=== PATIENT | male | born 1980 | race African-American/Black ===

== ENCOUNTER 2018-06-15 14:03 | Observation (INO) | payer OTHER ==
--- NOTE | 2018-06-15 14:35 | PDOC ---
History of Present Illness - General Chief Complaint: Pain Stated Complaint: CHEST PAIN Time Seen by Provider: 06/15/18 14:34 History Source: Patient Exam Limitations: No Limitations - History of Present Illness Initial Comments: 06/15/18 15:01 37 year old male with PMH HTN, HLD, DM, morbid obesity, blood clot in abdomen ( pt unable to provide more specific information), bipolar disorder BIBA to ED from PCP for chest pain and abdominal pain since 0300 today. Pt stated his chest pain is substernal, intermittent, sharp, nonradiating. Pt located his abdominal pain to his epigastrium. Pt was seen in Dr. Latif's office by another provider today, was sent to ED for eval. Pt stated he has has had two syncopal episodes, one x3 weeks ago lasting 3-4 minutes, witnessed by his family member. And another 2/15, lasting 3-4 minutes, witnessed by his father. Pt denied nausea, vomiting, diarrhea, constipation, fever, chills, cough, lightheadedness, head injury, fall. Allergies: Loratidine PCP: Salomon Past History - Past Medical History Allergies/Adverse Reactions: Allergies Allergy/AdvReac Type Severity Reaction Status Date / Time loratadine [From Claritin] Allergy Verified 06/15/18 14:11 Home Medications: Ambulatory Orders Amlodipine Besylate [Norvasc -] 5 mg PO DAILY 06/15/18 Clonazepam [Klonopin] 2 mg PO DAILY 06/15/18 Quetiapine Fumarate [Seroquel] 300 mg PO BID 06/15/18 Zolpidem Tartrate [Ambien] 10 mg PO DAILY 06/15/18 COPD: No Diabetes: Yes HTN: Yes Hypercholesterolemia: Yes Seizures: Yes (bipolar) - Suicide/Smoking/Psychosocial Hx Smoking History: Current every day smoker Have you smoked in the past 12 months: Yes Number of Cigarettes Smoked Daily: 20 Information on smoking cessation initiated: No Hx Alcohol Use: No Drug/Substance Use Hx: Yes Review of Systems - Review of Systems Able to Perform ROS?: Yes Comments:: 06/15/18 15:07 General: denied fever, chills, night sweats, generalized weakness. HEENT: denied sore throat, rhinorrhea, ear pain. Heart: admitted to chest pain, syncope. denied palpitations, diaphoresis. Respiratory: denied shortness of breath, cough, sputum production, hemoptysis. Abdomen: admitted to abdominal pain. denied nausea, vomiting, diarrhea, constipation, blood in stool. : denied dysuria, increased urinary frequency, hematuria, urinary incontinence , flank pain. Back: denied back pain. Musculoskeletal: denied joint pain, muscle pain, joint swelling. Neurological: denied headache, dizziness, numbness, tingling, weakness. Skin: denied rash, laceration, abrasion. *Physical Exam - Vital Signs Last Vital Signs Temp Pulse Resp BP Pulse Ox 98.3 F 96 H 20 127/72 98 06/15/18 14:12 06/15/18 14:12 06/15/18 14:12 06/15/18 14:12 06/15/18 14:12 - Physical Exam Comments: 06/15/18 15:08 Constitutional: Well-nourished, Well-developed, appearing stated age. morbidly obese. HEENT: head is normocephalic, atraumatic. EOMI. PERRLA. Neck: supple. Full ROM. Heart: regular rhythm. no murmurs, rubs or gallops. Lungs: clear to auscultation bilaterally. no crackles, rhonchi or wheezing. no stridor. Abdomen: soft, nontender. normal bowel sounds. no rebound, guarding, masses. Extremities: Peripheral pulses intact. 1+ pitting edema to bilateral LE. Neurological: CN 2-12 grossly intact. Moves all four extremities. Psych: awake, alert, oriented x3. Follows commands. Answers questions appropriately. Moderate Sedation - Procedure Monitoring Vital Signs: Procedure Monitoring Vital Signs Temperature 98.3 F 06/15/18 14:12 Pulse Rate 96 H 06/15/18 14:12 Respiratory Rate 20 06/15/18 14:12 Blood Pressure 127/72 06/15/18 14:12 O2 Sat by Pulse Oximetry (%) 98 06/15/18 14:12 ED Treatment Course - LABORATORY CBC & Chemistry Diagram: 06/16/18 05:30 06/16/18 05:30 Medical Decision Making - Medical Decision Making 06/15/18 15:09 37 year old male with above PMH presented to ED for chest pain, abdominal pain since 0300 today. Pt also admitted to two syncopal episodes in the last 3 weeks. Initial Vital Signs Temp Pulse Resp BP Pulse Ox 98.3 F 96 H 20 127/72 98 06/15/18 14:12 06/15/18 14:12 06/15/18 14:12 06/15/18 14:12 06/15/18 14:12 Afebrile. Borderline tachycardia. Borderline tachypnea. No hypotension. No hypertension. No hypoxia on room air. o Labs ordered: CBC, CMP, troponin, coags, BNP c Imaging ordered: CXR, CTA chest, Liver US g Medications ordered: ASA EKG performed at 1449: rate 87, regular rhythm, normal axis, normal intervals, low voltage, no acute ST changes. 06/15/18 15:16 CBC WBC y 10.4 K/mm3 (4.0-10.0) H 06/15/18 14:58 RBC 5.43 M/mm3 (4.00-5.60) 06/15/18 14:58 Hgb 16.0 GM/dL (11.7-16.9) 06/15/18 14:58 Hct 46.7 % (35.4-49) 06/15/18 14:58 MCV 86.1 fl (80-96) 06/15/18 14:58 MCH 29.4 pg (25.7-33.7) 06/15/18 14:58 MCHC 34.2 g/dl (32.0-35.9) 06/15/18 14:58 RDW 14.4 % (11.9-15.9) 06/15/18 14:58 Plt Count 215 K/MM3 (134-434) 06/15/18 14:58 MPV 8.7 fl (7.5-11.1) 06/15/18 14:58 Absolute Neuts (auto) 7.4 K/mm3 (1.5-8.0) 06/15/18 14:58 Neutrophils % 71.3 % (42.8-82.8) 06/15/18 14:58 Lymphocytes % 19.4 % (8-40) 06/15/18 14:58 Monocytes % 7.1 % (3.8-10.2) 06/15/18 14:58 Eosinophils % 1.1 % (0-4.5) 06/15/18 14:58 Basophils % 1.1 % (0-2.0) 06/15/18 14:58 Nucleated RBC % 0 % (0-0) 06/15/18 14:58 Mild leukocytosis with no left shift. - No prior to compare 06/15/18 15:50 CMP Sodium 137 mmol/L (136-145) 06/15/18 14:58 Potassium 4.1 mmol/L (3.5-5.1) 06/15/18 14:58 Chloride 103 mmol/L (98-107) 06/15/18 14:58 Carbon Dioxide 27 mmol/L (21-32) 06/15/18 14:58 Anion Gap 6 MMOL/L (8-16) L 06/15/18 14:58 BUN 15 mg/dL (7-18) 06/15/18 14:58 Creatinine 1.2 mg/dL (0.55-1.3) 06/15/18 14:58 Creat Clearance w eGFR > 60 (>60) 06/15/18 14:58 Random Glucose 79 mg/dL (74-106) 06/15/18 14:58 Calcium 9.0 mg/dL (8.5-10.1) 06/15/18 14:58 Total Bilirubin 0.2 mg/dL (0.2-1) 06/15/18 14:58 AST 29 U/L (15-37) 06/15/18 14:58 ALT 53 U/L (13-61) 06/15/18 14:58 Alkaline Phosphatase 95 U/L (45-117) 06/15/18 14:58 Troponin I < 0.02 ng/ml (0.00-0.05) 06/15/18 14:58 B-Natriuretic Peptide 20.8 pg/ml (5-125) 06/15/18 14:58 Total Protein 7.5 g/dl (6.4-8.2) 06/15/18 14:58 Albumin 3.8 g/dl (3.4-5.0) 06/15/18 14:58 No electrolyte abnormalities. Borderline Cr. - No prior to compare g - IV normal saline bolus 1000 cc ordered - Risk of unidentified PE greater than risk of contrast to kidneys No transaminitis. o Normal troponin. No BNP elevation. 06/15/18 17:18 c CXR report: no acute chest pathology. 06/15/18 17:53 c CTA Chest report: no evidence of pulmonary embolism. no acute chest pathology. 06/15/18 18:44 Pt reported continued chest pain. g Medications ordered: pepcid, maalox, tylenol PO 975 mg Pt to be admitted for syncope and chest pain. - Microblog sent Pt signed out to Dr. Lima. - Pending second EKG, Liver US for eval of portal vein thrombosis - Pending admission - Pending repeat troponin 06/16/18 09:21 Follow up: c 1. Liver US: patent main portal vein with physiologic flow direction. diffuse hepatic staetosis. o 2. Repeat troponin x2 normal *DC/Admit/Observation/Transfer Diagnosis at time of Disposition: Chest pain, Syncope - Discharge Dispostion Condition at time of disposition: Stable Decision to Admit order: Yes - Referrals - Patient Instructions - Post Discharge Activity
[2018-06-15] MEDS ORDERED: ASPIRIN 81 MG CHEWABLE TABLETS PO ONE (15:12)
[2018-06-15 15:14] LABS: BASO % 1.1 % (0-2.0); EOS % 1.1 % (0-4.5); HEMATOCRIT 46.7 % (35.4-49); LYMPH % 19.4 % (8-40); MCH 29.4 pg (25.7-33.7); MCHC 34.2 g/dl (32.0-35.9); MEAN CELL VOLUME 86.1 fl (80-96); MEAN PLT VOLUME 8.7 fl (7.5-11.1); MONO % 7.1 % (3.8-10.2); NEUT % 71.3 % (42.8-82.8); PLATELET COUNT 215 K/MM3 (134-434); RBC 5.43 M/mm3 (4.00-5.60); RDW 14.4 % (11.9-15.9); WHITE BLOOD COUNT 10.4 K/mm3 (4.0-10.0)
[2018-06-15] MEDS ORDERED: ASPIRIN 81 MG CHEWABLE TABLETS ONE (15:21)
[2018-06-15 15:27] LABS: INR 1.05 (0.83-1.09); PROTHROMBIN TIME (PATIENT) 12.4 SEC (9.7-13.0)
[2018-06-15 15:30] LABS: ACTIVATED PTT 20.9 SECONDS (25.2-36.5)
[2018-06-15 15:49] LABS: ALBUMIN 3.8 g/dl (3.4-5.0); ALK PHOS 95 U/L (45-117); ANION GAP 6 MMOL/L (8-16); BILIRUBIN,TOTAL 0.2 mg/dL (0.2-1); BLOOD UREA NITROGEN 15 mg/dL (7-18); CHLORIDE 103 mmol/L (98-107); CO2 27 mmol/L (21-32); CREATININE 1.2 mg/dL (0.55-1.3); GLUCOSE,RANDOM 79 mg/dL (74-106); N-TERMINAL BNP 20.8 pg/ml (5-125); POTASSIUM 4.1 mmol/L (3.5-5.1); SGOT/AST 29 U/L (15-37); SGPT/ALT 53 U/L (13-61); SODIUM 137 mmol/L (136-145); TOT PROT 7.5 g/dl (6.4-8.2)
[2018-06-15] MEDS ORDERED: SODIUM CHLORIDE 1,000 ML IV STA (15:57)
--- NOTE | 2018-06-15 18:15 | PDOC ---
Attending Attestation - Resident Resident Name: Tanika Stringer - ED Attending Attestation I have performed the following: I have examined & evaluated the patient, The case was reviewed & discussed with the resident, I agree w/resident's findings & plan, Exceptions are as noted - HPI HPI: 06/15/18 18:09 The patient is a 37 year old male, with a significant PMH of obesity HTN, HLD, DM, ?portal vein thrombosis no longer on AC, who presents to the emergency department for evaluation of chest pain and intermittent, sharp, upper abdominal pain which began this morning. Pt also reports two episodes of syncope while at rest over the past 2 days. Denies any lightheadedness or palpitations at this time. Denies fever, chills, nausea, vomit, diarrhea and constipation. Denies dysuria, frequency, urgency and hematuria. Allergies: NKA Social history: None reported PCP: Dr. Latif - Physicial Exam PE: 06/15/18 18:14 "GENERAL: Awake, alert, and fully oriented, in no acute distress. HEAD: No signs of trauma EYES: PERRLA, EOMI, sclera anicteric, conjunctiva clear ENT: Auricles normal inspection, hearing grossly normal, nares patent, oropharynx clear without exudates. Moist mucosa NECK: Nontender, no stepoffs, Normal ROM, supple, no lymphadenopathy, JVD, or masses LUNGS: Breath sounds equal, clear to auscultation bilaterally. No wheezes, and no crackles HEART: Regular rate and rhythm, normal S1 and S2, no murmurs, rubs or gallops ABDOMEN: Soft, nontender, normoactive bowel sounds. No guarding, no rebound. No masses EXTREMITIES: Normal range of motion, no edema. No clubbing or cyanosis. No cords, erythema, or tenderness NEUROLOGICAL: Cranial nerves II through XII intact. 5/5 strength and sensation in all extremities, Normal speech, normal gait, normal cerebellar function SKIN: Warm, Dry, normal turgor, no rashes or lesions noted. - Medical Decision Making 06/15/18 18:17 37 M with CP + multiple syncopal episodes. Pt with h/o ?portal vein thrombosis ( pt describes clot in his abdomen diagnosed on ultrasound). Will need to r/o PE as etiology of CP and syncope. Will also check liver US to evaluate for portal vein thrombosis. - Labs, coags - CTA chest - Liver US - Admit tele
[2018-06-15] MEDS ORDERED: FAMOTIDINE 20 MG/50 ML IVPB 20 MG/50 ML MG IVPB ONE ×2 (18:43→19:26)
[2018-06-15] MEDS ORDERED: MAG HYDROX/AL HYDROX/SIMETH 30 ML UNIT-DOSE CUP PO ONE (18:43)
[2018-06-15] MEDS ORDERED: ACETAMINOPHEN 325 MG TABLET (FP) PO ONE (18:43)
[2018-06-15] MEDS ORDERED: ACETAMINOPHEN 325 MG TABLET (FP) ONE (19:26)
[2018-06-15] MEDS ORDERED: MAG HYDROX/AL HYDROX/SIMETH 30 ML UNIT-DOSE CUP ONE (19:26)
--- NOTE | 2018-06-15 20:00 | HP ---
CHIEF COMPLAINT: Chest Pain, Syncope PCP: Dr. Latif Psych Nurse: Antonina ([phone]) HISTORY OF PRESENT ILLNESS: This is a 37 y/o young man with Severe Obesity, HTN, HLD, DM, Bipolar Disorder, ?Portal Vein Thrombosis (no AC), RENNY( non-working CPAP machine). Who presents to the ED with midsternal chest pain and 2 syncopal episodes (06/10). Patient describes the pain as pressure non-radiating. Patient reports having two syncopal events on separate occasions lasting several seconds to minutes, with no memory recall of the events. Patient reports pending bariatric surgery- Gastric Sleeve in the process of pre-op testing. Patient denies fever, chills, cough, CASTILLO, palpitations, AP, N/V/D, constipation, dysuria ER course was notable for: (1) Troponin I neg x1 (2) EKG- NSR (3) CTA- no PE or acute intrathoracic pathology Recent Travel: None PAST MEDICAL HISTORY: See HPI PAST SURGICAL HISTORY: Social History: Smoking: Current Alcohol: Social Drugs: Marijuana- Occasional Family History: Father- ESRD Allergies loratadine [From Claritin] Allergy (Verified 06/15/18 14:11) HOME MEDICATIONS: Home Medications Medication Instructions Recorded Amlodipine Besylate [Norvasc -] 5 mg PO DAILY 06/15/18 Clonazepam [Klonopin] 2 mg PO DAILY 06/15/18 Quetiapine Fumarate [Seroquel] 300 mg PO BID 06/15/18 Zolpidem Tartrate [Ambien] 10 mg PO DAILY 06/15/18 REVIEW OF SYSTEMS CONSTITUTIONAL: Absent: fever, chills, diaphoresis, generalized weakness, malaise, loss of appetite, weight change HEENT: Absent: rhinorrhea, nasal congestion, throat pain, throat swelling, difficulty swallowing, mouth swelling, ear pain, eye pain, visual changes CARDIOVASCULAR: chest pain, syncope, peripheral edema Absent: palpitations, irregular heart rate, lightheadedness RESPIRATORY: shortness of breath Absent: cough, dyspnea with exertion, orthopnea, wheezing, stridor, hemoptysis GASTROINTESTINAL: Absent: abdominal pain, abdominal distension, nausea, vomiting, diarrhea, constipation, melena, hematochezia GENITOURINARY: Absent: dysuria, frequency, urgency, hesitancy, hematuria, flank pain, genital pain MUSCULOSKELETAL: Absent: myalgia, arthralgia, joint swelling, back pain, neck pain SKIN: Absent: rash, itching, pallor HEMATOLOGIC/IMMUNOLOGIC: Absent: easy bleeding, easy bruising, lymphadenopathy, frequent infections ENDOCRINE: Absent: unexplained weight gain, unexplained weight loss, heat intolerance, cold intolerance NEUROLOGIC: Absent: headache, focal weakness or paresthesias, dizziness, unsteady gait, seizure, mental status changes, bladder or bowel incontinence PSYCHIATRIC: Absent: anxiety, depression, suicidal or homicidal ideation, hallucinations. PHYSICAL EXAMINATION Vital Signs - 24 hr 06/15/18 14:12 Temperature 98.3 F Pulse Rate 96 H Respiratory 20 Rate Blood Pressure 127/72 O2 Sat by Pulse 98 Oximetry (%) GENERAL: Severe Obesity, awake, alert, and fully oriented, in no acute distress. HEAD: Normal with no signs of trauma. EYES: Pupils equal, round and reactive to light, extraocular movements intact, sclera anicteric, conjunctiva clear. No lid lag. EARS, NOSE, THROAT: Ears normal, nares patent, oropharynx clear without exudates. Moist mucous membranes. NECK: Normal range of motion, supple without lymphadenopathy, JVD, or masses. LUNGS: Breath sounds equal, clear to auscultation bilaterally. No wheezes, and no crackles. No accessory muscle use. HEART: Regular rate and rhythm, normal S1 and S2 without murmur, rub or gallop. CP non-reproducible ABDOMEN: Obese, soft, nontender, not distended, normoactive bowel sounds, no guarding, no rebound, no masses. No hepatomegaly or splenomegaly. MUSCULOSKELETAL: Normal range of motion at all joints. No bony deformities or tenderness. No CVA tenderness. UPPER EXTREMITIES: 2+ pulses, warm, well-perfused. No cyanosis. No clubbing. No peripheral edema. LOWER EXTREMITIES: 2+ pulses, warm, well-perfused. No calf tenderness. No peripheral edema. NEUROLOGICAL: Cranial nerves II-XII intact. Normal speech. Gait not observed. PSYCHIATRIC: Cooperative. Good eye contact. Appropriate mood and affect. SKIN: Warm, dry, normal turgor, no rashes or lesions noted, normal capillary refill. Laboratory Results - last 24 hr 06/15/18 06/15/18 06/15/18 14:58 14:58 14:58 WBC 10.4 H RBC 5.43 Hgb 16.0 Hct 46.7 MCV 86.1 MCH 29.4 MCHC 34.2 RDW 14.4 Plt Count 215 MPV 8.7 Absolute Neuts (auto) 7.4 Neutrophils % 71.3 Lymphocytes % 19.4 Monocytes % 7.1 Eosinophils % 1.1 Basophils % 1.1 Nucleated RBC % 0 PT with INR 12.40 INR 1.05 PTT (Actin FS) 20.9 L Sodium 137 Potassium 4.1 Chloride 103 Carbon Dioxide 27 Anion Gap 6 L BUN 15 Creatinine 1.2 Creat Clearance w eGFR > 60 Random Glucose 79 Calcium 9.0 Total Bilirubin 0.2 AST 29 ALT 53 Alkaline Phosphatase 95 Troponin I < 0.02 B-Natriuretic Peptide 20.8 Total Protein 7.5 Albumin 3.8 Blood Type Antibody Screen 06/15/18 06/15/18 14:58 18:14 WBC RBC Hgb Hct MCV MCH MCHC RDW Plt Count MPV Absolute Neuts (auto) Neutrophils % Lymphocytes % Monocytes % Eosinophils % Basophils % Nucleated RBC % PT with INR INR PTT (Actin FS) Sodium Potassium Chloride Carbon Dioxide Anion Gap BUN Creatinine Creat Clearance w eGFR Random Glucose Calcium Total Bilirubin AST ALT Alkaline Phosphatase Troponin I < 0.02 B-Natriuretic Peptide Total Protein Albumin Blood Type B POSITIVE Antibody Screen Negative ASSESSMENT/PLAN: This is a 37 y/o divya man placed in Tele Observation for Chest Pain r/o ACS, Syncope for further evaluation of their emergent condition. Plan: See Problem List FEN PO fluids as tolerated Replete lytes prn Low Na, Diabetic Diet DVT ppx OOB SCDs Dispo: Observation Problem List - Problem (1) Chest pain Assessment/Plan: r/o ACS HEART Score 3 Cardiac monitoring Serial Enzymes Appreciate Cardiology consult Echo Asa Code(s): R07.9 - CHEST PAIN, UNSPECIFIED (2) Syncope Assessment/Plan: Likely secondary to arrhythmia Continue cardiac montoring Chest Xray- Cardiomegaly Appreciate Cardiology consult Echo Carotid Doppler Monitor CBC, BMP Code(s): R55 - SYNCOPE AND COLLAPSE (3) HTN (hypertension) Assessment/Plan: stable Monitor BP Continue Norvasc Monitor renal function Code(s): I10 - ESSENTIAL (PRIMARY) HYPERTENSION (4) HLD (hyperlipidemia) Assessment/Plan: stable Continue Lipitor Monitor LFTs Code(s): E78.5 - HYPERLIPIDEMIA, UNSPECIFIED (5) Diabetes mellitus Assessment/Plan: Stable BGMs ISS Code(s): E11.9 - TYPE 2 DIABETES MELLITUS WITHOUT COMPLICATIONS (6) Bipolar disorder Assessment/Plan: Continue Seroquel, Klonopin Code(s): F31.9 - BIPOLAR DISORDER, UNSPECIFIED (7) Portal vein thrombosis Assessment/Plan: US- diffuse hepatic steatosis Code(s): I81 - PORTAL VEIN THROMBOSIS (8) Severe obesity (BMI >= 40) Assessment/Plan: Patient reports pending Gastric Sleeve sx Code(s): E66.01 - MORBID (SEVERE) OBESITY DUE TO EXCESS CALORIES Visit type - Emergency Visit Emergency Visit: Yes ED Registration Date: 06/15/18 Care time: The patient presented to the Emergency Department on the above date and was hospitalized for further evaluation of their emergent condition. - New Patient This patient is new to me today: Yes Date on this admission: 06/15/18 - Critical Care Critical Care patient: No
[2018-06-15] MEDS ORDERED: QUEtiapine FUMARATE 100 MG TABLET (FP) ONE (23:09)
[2018-06-15] MEDS ORDERED: ZOLPIDEM TARTRATE 5 MG TABLET ONE (23:09)
[2018-06-15] MEDS: ZOLPIDEM TARTRATE 5 MG TABLET PO PRN (23:12)
[2018-06-15] MEDS: QUEtiapine FUMARATE 300 MG TABLET PO SCH (23:12)
[2018-06-15] MEDS ORDERED: clonazePAM 0.5 MG TABLET ONE (23:24)
[2018-06-15] MEDS: clonazePAM 2 MG TABLET PO SCH (23:29)
--- NOTE | 2018-06-16 02:30 | EKG ---
Test Reason : Blood Pressure : / mmHG Vent. Rate : 087 BPM Atrial Rate : 087 BPM P-R Int : 170 ms QRS Dur : 074 ms QT Int : 382 ms P-R-T Axes : 020 036 054 degrees QTc Int : 459 ms POOR DATA QUALITY, INTERPRETATION MAY BE ADVERSELY AFFECTED NORMAL SINUS RHYTHM LOW VOLTAGE QRS BORDERLINE ECG NO PREVIOUS ECGS AVAILABLE Confirmed by ENDY GALVEZ MD ([id number]) on 06/16/2018 2:30:03 AM Referred By: Confirmed By:ENDY GALVEZ MD
[2018-06-16 05:42] LABS: BASO % 0.9 % (0-2.0); EOS % 1.7 % (0-4.5); HEMATOCRIT 44.8 % (35.4-49); HEMOGLOBIN 15.2 GM/dL (11.7-16.9); LYMPH % 29.4 % (8-40); MCHC 33.9 g/dl (32.0-35.9); MEAN CELL VOLUME 85.6 fl (80-96); MEAN PLT VOLUME 8.3 fl (7.5-11.1); MONO % 7.2 % (3.8-10.2); NEUT % 60.8 % (42.8-82.8); PLATELET COUNT 214 K/MM3 (134-434); RBC 5.23 M/mm3 (4.00-5.60); RDW 14.3 % (11.9-15.9); WHITE BLOOD COUNT 8.5 K/mm3 (4.0-10.0)
[2018-06-16 06:06] LABS: ANION GAP 8 MMOL/L (8-16); BLOOD UREA NITROGEN 16 mg/dL (7-18); CALCIUM 8.5 mg/dL (8.5-10.1); CHLORIDE 103 mmol/L (98-107); CO2 27 mmol/L (21-32); CREATININE 1.2 mg/dL (0.55-1.3); GLUCOSE,RANDOM 119 mg/dL (74-106); MAGNESIUM 2.3 mg/dL (1.8-2.4); PHOSPHOROUS 4.1 mg/dL (2.5-4.9); POTASSIUM 3.7 mmol/L (3.5-5.1); SODIUM 138 mmol/L (136-145)
[2018-06-16] MEDS ORDERED: clonazePAM 2 MG TABLET PO SCH (10:00)
[2018-06-16] MEDS ORDERED: amLODIPine BESYLATE 5 MG TABLET (FP) PO SCH (10:00)
[2018-06-16] MEDS: ASPIRIN 81 MG CHEWABLE TABLETS PO SCH (10:08)
[2018-06-16] MEDS: QUEtiapine FUMARATE 300 MG TABLET PO SCH ×2 (10:08→22:12)
--- NOTE | 2018-06-16 11:10 | PN ---
Progress Note, Physician Chief Complaint: patient seen and examined sitting in bed no distress says he has chest pain and epigastric pain on palpation - Current Medication List Current Medications: Active Medications Amlodipine Besylate (Norvasc -) 5 mg PO DAILY [facility] Last Admin: 06/16/18 10:08 Dose: 5 mg Aspirin (Asa -) 81 mg PO DAILY [facility] Last Admin: 06/16/18 10:08 Dose: 81 mg Clonazepam (Klonopin -) 2 mg PO HS [facility] Last Admin: 06/15/18 23:29 Dose: 2 mg Quetiapine Fumarate (Seroquel -) 300 mg PO BID [facility] Last Admin: 06/16/18 10:08 Dose: 300 mg Zolpidem Tartrate (Ambien -) 10 mg PO HS PRN PRN Reason: INSOMNIA Last Admin: 06/15/18 23:12 Dose: 10 mg - Objective Vital Signs: Vital Signs Temperature 98.3 F 06/16/18 07:15 Pulse Rate 100 H 06/16/18 07:15 Respiratory Rate 17 06/16/18 07:15 Blood Pressure 143/87 06/16/18 07:15 O2 Sat by Pulse Oximetry (%) 95 06/16/18 10:47 Constitutional: Yes: Calm, Obese, Other Cardiovascular: Yes: Regular Rate and Rhythm, S1, S2, Other (chest tenderness upper left side on palpation) Respiratory: Yes: CTA Bilaterally Gastrointestinal: Yes: Normal Bowel Sounds, Soft, Abdomen, Obese Edema: Yes Neurological: Yes: Alert, Oriented Labs: CBC, BMP 06/16/18 05:30 06/16/18 05:30 INR, PTT INR 1.05 (0.83-1.09) 06/15/18 14:58 Problem List - Problems (1) Bipolar disorder Assessment/Plan: psych eval seroquel,klonopin, Code(s): F31.9 - BIPOLAR DISORDER, UNSPECIFIED (2) Chest pain Assessment/Plan: atypical chest pain CE 3 sets negative echo aspirin CTA negative carotid doppler negative ekg NSR Code(s): R07.9 - CHEST PAIN, UNSPECIFIED (3) HLD (hyperlipidemia) Assessment/Plan: lipd panel ok Code(s): E78.5 - HYPERLIPIDEMIA, UNSPECIFIED (4) Severe obesity (BMI >= 40) Assessment/Plan: bipap at night check [id number] Code(s): E66.01 - MORBID (SEVERE) OBESITY DUE TO EXCESS CALORIES (5) HTN (hypertension) Assessment/Plan: stop norvasc given leg swelling losartan Code(s): I10 - ESSENTIAL (PRIMARY) HYPERTENSION
[2018-06-16] MEDS: PANTOPRAZOLE 40 MG TABLET (FP) PO SCH (13:08)
--- NOTE | 2018-06-16 13:13 | ECHO ---
Name: EFE MACHUCA Exam:Adult Echocardiogram Study Date: 06/16/2018 10:09 AM Age: 37 yrs Reason For Study: Chest pain Height: 68 in Weight: 337 lb BSA: 2.6 m2 MMode/2D Measurements & Calculations IVSd: 0.74 cm Ao root diam: 2.6 cm LVIDd: 5.7 cm LA dimension: 3.6 cm LVIDs: 3.7 cm LVPWd: 0.72 cm EDV(Teich): 158.4 ml LVOT diam: 2.3 cm ESV(Teich): 56.5 ml Doppler Measurements & Calculations MV E max cruz: 58.7 cm/sec Ao V2 max: 67.6 cm/sec MV A max cruz: 54.8 cm/sec Ao max P.8 mmHg MV E/A: 1.1 MV dec time: 0.19 sec KEDAR(V,D): 4.5 cm2 LV V1 max P.0 mmHg Med Peak E' Cruz: 7.3 cm/sec LV V1 max: 70.3 cm/sec Med E/e': 8.0 Lat Peak E' Cruz: 5.5 cm/sec Lat E/e': 10.7 Procedure A complete two-dimensional transthoracic echocardiogram was performed (2D, M-mode, Doppler and color flow Doppler). The study was technically difficult with many images being suboptimal in quality. Left Ventricle The left ventricular size, thickness and function are normal. The left ventricular ejection fraction is normal. Ejection Fraction = 55-60%. Regional wall motion abnormalities cannot be excluded due to limi doyle visualization. Right Ventricle The right ventricle is normal in size and function. Atria Normal left and right atrial size and function. Mitral Valve There is no mitral regurgitation noted. Tricuspid Valve There is trace tricuspid regurgitation. There was insufficient TR detected to calculate RV systolic p ressure. Aortic Valve No hemodynamically significant valvular aortic stenosis. No aortic regurgitation is present. Pulmonic Valve There is no pulmonic valvular regurgitation. Great Vessels The aortic root is normal size. Pericardium/Pleura There is no pericardial effusion. Interpretation Summary The study was technically difficult with many images being suboptimal in quality. The left ventricular size, thickness and function are normal The right ventricle is normal in size and function. There is trace tricuspid regurgitation. MD Patrice Castillo 06/16/2018 01:12 PM
[2018-06-16] MEDS ORDERED: PANTOPRAZOLE 40 MG TABLET (FP) ONE (13:33)
--- NOTE | 2018-06-16 15:29 | CON.CARD ---
Consult Consult Specialty:: Cardiology Referred by:: Sissy Latif Reason for Consultation:: chest pain - History of Present Illness Chief Complaint: chest pain History of Present Illness: 37 year old male with a pmhx of htn, hld, dm, morbid obesity, bipolar disorder, reports blood clot in abdomen and recently on 1 month of blood thinner as per patient who presents with chest pain and abdominal pain. Patient reports that for last 3 days he has had constant lower chest and upper abdomen pain. Pain is not intermittent, is mild, and is worse with palpation. Not exertional. No sob at rest. Lower chest wall and epigastrum very tender to touch which is the pain he is complaining about. Walked in hallway with no chest pain. On ROS, reports two syncope events. One couple weeks ago and one last week. Both similar story. He was having a beer talking in a chair when sat back and than was told he was unresponsive in chair for 5 mins and than woke back up and went right back into conversation. No symptoms prior to events. Also reports, many recent hospitalizations at [facility] for asthma and always told he is fine. - History Source History Provided By: Patient, Medical Record - Alcohol/Substance Use Hx Alcohol Use: No - Smoking History Smoking history: Current every day smoker Have you smoked in the past 12 months: Yes Aproximately how many cigarettes per day: 20 Home Medications - Allergies Allergies/Adverse Reactions: Allergies Allergy/AdvReac Type Severity Reaction Status Date / Time loratadine [From Claritin] Allergy Verified 06/15/18 14:11 - Home Medications Home Medications: Ambulatory Orders Amlodipine Besylate [Norvasc -] 5 mg PO DAILY 06/15/18 Clonazepam [Klonopin] 2 mg PO DAILY 06/15/18 Quetiapine Fumarate [Seroquel] 300 mg PO BID 06/15/18 Zolpidem Tartrate [Ambien] 10 mg PO DAILY 06/15/18 Vital Signs: Vital Signs Temperature 98.2 F 06/16/18 13:19 Pulse Rate 84 06/16/18 13:19 Respiratory Rate 18 06/16/18 13:19 Blood Pressure 139/87 06/16/18 13:19 O2 Sat by Pulse Oximetry (%) 98 06/16/18 13:19 Constitutional: Yes: No Distress Neck: Yes: Supple Respiratory: Yes: CTA Bilaterally Gastrointestinal: Yes: Soft Cardiovascular: Yes: Regular Rate and Rhythm JVD: No Carotid Bruit: No PMI: Non-Displaced Heart Sounds: Yes: S1, S2 Murmur: No: Systolic Murmur Musculoskeletal: Yes: Other (chest wall tenderness) Edema: No - Other Data Labs, Other Data: CBC, BMP 06/16/18 05:30 06/16/18 05:30 INR, PTT INR 1.05 (0.83-1.09) 06/15/18 14:58 Troponin, BNP 06/15/18 06/15/18 06/16/18 14:58 18:14 00:30 Troponin I < 0.02 < 0.02 < 0.02 B-Natriuretic Peptide 20.8 Troponin, BNP 06/15/18 06/15/18 06/16/18 14:58 18:14 00:30 Troponin I < 0.02 < 0.02 < 0.02 B-Natriuretic Peptide 20.8 Imaging - Results Chest X-ray: Report Reviewed Cat Scan: Report Reviewed EKG: Image Reviewed Problem List - Problems (1) Chest pain Code(s): R07.9 - CHEST PAIN, UNSPECIFIED Assessment/Plan 37 year old male with a pmhx of htn, hld, dm, morbid obesity, bipolar disorder, reports blood clot in abdomen and recently on 1 month of blood thinner as per patient who presents with chest pain and abdominal pain. Patient reports that for last 3 days he has had constant lower chest and upper abdomen pain. Pain is not intermittent, is mild, and is worse with palpation. Not exertional. No sob at rest. Lower chest wall and epigastrum very tender to touch which is the pain he is complaining about. Walked in hallway with no chest pain. 1) Chest pain -pain is very atypical as constant for 3 days and not intermittent and is mainly with touch. No pain with walking in the hallway. EKG sinus with no ischemic changes Trop neg Echo normal LVEF and no significant valve disease CTA no PE -No further inpatient cardiac work up. 2) Syncope Unclear etiology ?due to sleep apnea. consider sleep apnea eval and cpap -Echo, ekg, CTA unremarkable -Plan for outpatient 30 day event monitor/patch -can consider neuro if any thought to seizures Would get records from [facility] about ?blood clot but CTA with no PE Please follow up with Dr. Jairo Vargas as outpatient [phone]
[2018-06-16] MEDS ORDERED: PT OWN MED DRAWER 7, Y5N ONE (18:01)
[2018-06-16] MEDS ORDERED: ACETAMINOPHEN 325 MG TABLET (FP) PO PRN (19:53)
[2018-06-16] MEDS: ZOLPIDEM TARTRATE 5 MG TABLET PO PRN (21:25)
[2018-06-16] MEDS: clonazePAM 2 MG TABLET PO SCH (21:25)
[2018-06-16] MEDS: NICOTINE 14 MG/24 HOURS TOPICAL PATCH TD SCH (21:26)
--- NOTE | 2018-06-17 10:48 | CON.PSY ---
Psychiatry Consult Chief Complaint: 37 year old aobese male, scheduled for Gastric BY Pass admitted to [facility]. patient apparantly fainted at [facility] office. Reports that he gets mental health treatment at [facility] [place] anxiety and insomnia. Symptoms: reports: Anxiety - Previous Psychiatric Treatment Outpatient: Less than 6 mos ago Inpatient: None - Previous Substance Abuse Treatment Outpatient: None Inpatient: None - Reason for Previous Treatment Reason for Previous Treatment: Anxiety or Panic Disorder - Current Medications Current Medications: Active Medications Acetaminophen (Tylenol -) 650 mg PO Q6H PRN PRN Reason: FEVER Last Admin: 06/16/18 21:25 Dose: 650 mg Aspirin (Asa -) 81 mg PO DAILY [facility] Last Admin: 06/16/18 10:08 Dose: 81 mg Clonazepam (Klonopin -) 2 mg PO HS [facility] Last Admin: 06/16/18 21:25 Dose: 2 mg Losartan Potassium (Cozaar -) 50 mg PO DAILY [facility] Nicotine (Nicoderm Patch -) 14 mg TD DAILY [facility] Last Admin: 06/16/18 21:26 Dose: 14 mg Pantoprazole Sodium (Protonix -) 40 mg PO DAILY [facility] Last Admin: 06/16/18 13:08 Dose: 40 mg Quetiapine Fumarate (Seroquel -) 600 mg PO HS [facility] Zolpidem Tartrate (Ambien -) 10 mg PO HS PRN PRN Reason: INSOMNIA Last Admin: 06/16/18 21:25 Dose: 10 mg - Allergies Allergies: Allergies Allergy/AdvReac Type Severity Reaction Status Date / Time loratadine [From Claritin] Allergy Verified 06/15/18 14:11 - Current Living Status Usual Living Arrangement: Alone - Current Mental Status Evaluation Appearance: Disheveled Attitude: Guarded - Affect Affect: Constrictive Appropriateness: Appropriate to Content - Mood Mood: Irritable - Speech/Language Expressive: Coherent - Psychomotor Activity Psychomotor Activity: Slowed - Thought Process Thought Process: Intact - Thought Content Hallucinations: Absent Delusions: Absent - Self Perception Self Perception: No Impairment - Cognition Attention: Alert Orientation: Time Memory, Immediate Recall: Intact Memory, Short Term: 3/3 Memory, Remote with Promptin/3 - Concentration Serial Sevens Intact: No Simple Calculations Intact: Yes - Abstraction Proverb Interpretation: Intact Judgement: Minimally Impaired - Insight Insight: Intact - Impulse Control Impulse Control: Minimally Impaired - Suicidal Ideation Suicidal Ideation: No - Homicidal Ideation Homicidal Ideation: No Assessment/Plan 1) give Seroquel 600mg po hs. 2) continue with Klonapin 2mg po hs.
[2018-06-17] MEDS: PANTOPRAZOLE 40 MG TABLET (FP) PO SCH (11:27)
[2018-06-17] MEDS: ASPIRIN 81 MG CHEWABLE TABLETS PO SCH (11:27)
[2018-06-17] MEDS: LOSARTAN POTASSIUM 50 MG TABLET (FP) PO SCH (11:28)
[2018-06-17] MEDS: NICOTINE 14 MG/24 HOURS TOPICAL PATCH TD SCH (11:30)
[2018-06-17 11:35] VITALS: BMI 55.7
[2018-06-17] MEDS: QUEtiapine FUMARATE 300 MG TABLET PO SCH ×2 (11:54→21:33)
[2018-06-17] MEDS ORDERED: PT OWN MED DRAWER 7, Y5N ONE (14:04)
--- NOTE | 2018-06-17 17:43 | PN ---
Progress Note, Physician Chief Complaint: Chest pain Syncopal episode History of Present Illness: Previous notes and events reviewed awake and alert NAD complain of abdominal pain - Current Medication List Current Medications: Active Medications Acetaminophen (Tylenol -) 650 mg PO Q6H PRN PRN Reason: FEVER Last Admin: 06/16/18 21:25 Dose: 650 mg Aspirin (Asa -) 81 mg PO DAILY [facility] Last Admin: 06/17/18 11:27 Dose: 81 mg Clonazepam (Klonopin -) 2 mg PO HS [facility] Last Admin: 06/16/18 21:25 Dose: 2 mg Losartan Potassium (Cozaar -) 50 mg PO DAILY [facility] Last Admin: 06/17/18 11:28 Dose: 50 mg Nicotine (Nicoderm Patch -) 14 mg TD DAILY [facility] Last Admin: 06/17/18 11:30 Dose: 14 mg Pantoprazole Sodium (Protonix -) 40 mg PO DAILY [facility] Last Admin: 06/17/18 11:27 Dose: 40 mg Quetiapine Fumarate (Seroquel -) 600 mg PO HS [facility] Zolpidem Tartrate (Ambien -) 10 mg PO HS PRN PRN Reason: INSOMNIA Last Admin: 06/16/18 21:25 Dose: 10 mg - Objective Vital Signs: Vital Signs Temperature 98.2 F 06/17/18 14:31 Pulse Rate 95 H 06/17/18 14:31 Respiratory Rate 18 06/17/18 14:31 Blood Pressure 112/71 06/17/18 14:31 O2 Sat by Pulse Oximetry (%) 93 L 06/17/18 10:35 Constitutional: Yes: No Distress, Calm Eyes: Yes: Conjunctiva Clear HENT: Yes: Atraumatic Cardiovascular: Yes: Regular Rate and Rhythm Respiratory: Yes: Regular, CTA Bilaterally Gastrointestinal: Yes: Normal Bowel Sounds, Soft, Abdomen, Obese, Other (diffuse ) Musculoskeletal: Yes: WNL Extremities: Yes: WNL Edema: No Neurological: Yes: Alert, Oriented Psychiatric: Yes: Alert, Oriented Labs: CBC, BMP 06/16/18 05:30 06/16/18 05:30 INR, PTT INR 1.05 (0.83-1.09) 06/15/18 14:58 <Marcia Helms - Last Filed: 06/17/18 17:37> - Current Medication List Current Medications: Active Medications Acetaminophen (Tylenol -) 650 mg PO Q6H PRN PRN Reason: FEVER Last Admin: 06/16/18 21:25 Dose: 650 mg Aspirin (Asa -) 81 mg PO DAILY [facility] Last Admin: 06/17/18 11:27 Dose: 81 mg Clonazepam (Klonopin -) 2 mg PO HS [facility] Last Admin: 06/17/18 21:33 Dose: 2 mg Losartan Potassium (Cozaar -) 50 mg PO DAILY [facility] Last Admin: 06/17/18 11:28 Dose: 50 mg Nicotine (Nicoderm Patch -) 14 mg TD DAILY [facility] Last Admin: 06/17/18 11:30 Dose: 14 mg Pantoprazole Sodium (Protonix -) 40 mg PO DAILY [facility] Last Admin: 06/17/18 11:27 Dose: 40 mg Quetiapine Fumarate (Seroquel -) 600 mg PO HS [facility] Last Admin: 06/17/18 21:33 Dose: 600 mg Zolpidem Tartrate (Ambien -) 10 mg PO HS PRN PRN Reason: INSOMNIA Last Admin: 06/17/18 21:37 Dose: 10 mg - Objective Vital Signs: Vital Signs Temperature 97.7 F 06/17/18 18:00 Pulse Rate 96 H 06/17/18 18:00 Respiratory Rate 18 06/17/18 18:00 Blood Pressure 112/80 06/17/18 18:00 O2 Sat by Pulse Oximetry (%) 93 L 06/17/18 10:35 Labs: CBC, BMP 06/16/18 05:30 06/16/18 05:30 INR, PTT INR 1.05 (0.83-1.09) 06/15/18 14:58 <Sissy Latif - Last Filed: 06/17/18 22:17> Problem List - Problems (1) Bipolar disorder Assessment/Plan: -continue with Seroquel Code(s): F31.9 - BIPOLAR DISORDER, UNSPECIFIED (2) Chest pain Assessment/Plan: -cardiology on board -to follow up with cardiology as outpatient -Carotid US, EKG, echo unremarkable -chest pain reproducible on palpation -continue with aspirin daily Code(s): R07.9 - CHEST PAIN, UNSPECIFIED (3) HTN (hypertension) Assessment/Plan: -continue with Cozaar daily -low Na diet Code(s): I10 - ESSENTIAL (PRIMARY) HYPERTENSION (4) Abdominal pain Assessment/Plan: -hx of Abdominal PE--Abdomen and Pelvic CT scan -GI consult -if cleared by GI and CT scan negative can be discharged home Code(s): R10.9 - UNSPECIFIED ABDOMINAL PAIN <Marcia Helms - Last Filed: 06/17/18 17:37> Assessment/Plan see problem list dvt ppx <Marcia Helms - Last Filed: 06/17/18 17:37>
[2018-06-17] MEDS: clonazePAM 2 MG TABLET PO SCH (21:33)
[2018-06-17] MEDS: ZOLPIDEM TARTRATE 5 MG TABLET PO PRN (21:37)
[2018-06-18] MEDS: PANTOPRAZOLE 40 MG TABLET (FP) PO SCH (09:25)
[2018-06-18] MEDS: LOSARTAN POTASSIUM 50 MG TABLET (FP) PO SCH (09:25)
[2018-06-18] MEDS: NICOTINE 14 MG/24 HOURS TOPICAL PATCH TD SCH (09:25)
[2018-06-18] MEDS: ASPIRIN 81 MG CHEWABLE TABLETS PO SCH (09:25)
--- NOTE | 2018-06-18 12:22 | PN ---
Progress Note, Physician Chief Complaint: Chest pain Syncopal episode Abdominal Pain History of Present Illness: NAD in bed c/o lower abdominal pain CT abd reviewed stone in appendix? HCS history Patient Name: Ketan Lang Date: 1980 Address: [address] [place] [address] [place] [address] Sex: Male Rx Written Rx Dispensed Drug Quantity Days Supply Prescriber Name 06/01/2018 06/10/2018 clonazepam 0.5 mg tablet 60 30 Justin, Emilia G 06/01/2018 06/01/2018 zolpidem tartrate 10 mg tablet 30 30 Justin, Emilia G 02/14/2018 05/01/2018 zolpidem tartrate 10 mg tablet 30 30 Justin, Emilia G 04/14/2018 04/23/2018 clonazepam 2 mg tablet 30 30 Justin, Emilia G 04/04/2018 04/07/2018 clonazepam 2 mg tablet 15 15 Justin, Emilia G 01/20/2018 03/29/2018 zolpidem tartrate 10 mg tablet 30 30 Justin, Emilia G 03/08/2018 03/11/2018 clonazepam 2 mg tablet 30 30 Justin, Emilia G 03/06/2018 03/07/2018 clonazepam 2 mg tablet 5 5 Edyta Orellana (MS) 02/14/2018 02/24/2018 zolpidem tartrate 10 mg tablet 30 30 Justin, Emilia G - Current Medication List Current Medications: Active Medications Acetaminophen (Tylenol -) 650 mg PO Q6H PRN PRN Reason: FEVER Last Admin: 06/16/18 21:25 Dose: 650 mg Aspirin (Asa -) 81 mg PO DAILY [facility] Last Admin: 06/18/18 09:25 Dose: 81 mg Budesonide/Formoterol Fumarate (Symbicort 160/4.5mcg -) 2 puff IH BID [facility] Clonazepam (Klonopin -) 2 mg PO HS [facility] Last Admin: 06/17/18 21:33 Dose: 2 mg Losartan Potassium (Cozaar -) 50 mg PO DAILY [facility] Last Admin: 06/18/18 09:25 Dose: 50 mg Nicotine (Nicoderm Patch -) 14 mg TD DAILY [facility] Last Admin: 06/18/18 09:25 Dose: 14 mg Pantoprazole Sodium (Protonix -) 40 mg PO DAILY [facility] Last Admin: 06/18/18 09:25 Dose: 40 mg Quetiapine Fumarate (Seroquel -) 600 mg PO HS [facility] Last Admin: 06/17/18 21:33 Dose: 600 mg Zolpidem Tartrate (Ambien -) 10 mg PO HS PRN PRN Reason: INSOMNIA Last Admin: 06/17/18 21:37 Dose: 10 mg - Objective Vital Signs: Vital Signs Temperature 98.1 F 06/18/18 08:13 Pulse Rate 95 H 06/18/18 08:13 Respiratory Rate 18 06/18/18 12:00 Blood Pressure 139/77 06/18/18 08:13 O2 Sat by Pulse Oximetry (%) 96 06/18/18 04:00 Constitutional: Yes: Well Nourished, No Distress, Calm, Obese Cardiovascular: Yes: Regular Rate and Rhythm Respiratory: Yes: Regular Gastrointestinal: Yes: Abdomen, Obese, Hypoactive Bowel Sounds, Other (pt refused palpation of the abdomen) Genitourinary: Yes: WNL Musculoskeletal: Yes: WNL Edema: No Peripheral Pulses WNL: Yes Neurological: Yes: Alert, Oriented Psychiatric: Yes: Alert, Oriented Labs: CBC, BMP 06/16/18 05:30 06/16/18 05:30 INR, PTT INR 1.05 (0.83-1.09) 06/15/18 14:58 Problem List - Problems (1) Abdominal pain Assessment/Plan: -CT abd reviewed -GI and Surgical consult -Diet as per GI Code(s): R10.9 - UNSPECIFIED ABDOMINAL PAIN Qualifiers: Abdominal location: epigastric Qualified Code(s): R10.13 - Epigastric pain (2) Bipolar disorder Assessment/Plan: Continue beds Code(s): F31.9 - BIPOLAR DISORDER, UNSPECIFIED (3) Chest pain Assessment/Plan: -cardiology on board -to follow up with cardiology as outpatient -Carotid US, EKG, echo unremarkable -chest pain reproducible on palpation -continue with aspirin daily Code(s): R07.9 - CHEST PAIN, UNSPECIFIED (4) Severe obesity (BMI >= 40) Code(s): E66.01 - MORBID (SEVERE) OBESITY DUE TO EXCESS CALORIES Assessment/Plan See problem list Self ambulatory
--- NOTE | 2018-06-18 12:46 | CON.GI ---
Consult Consult Specialty:: Gastroenterology Referred by:: Mary Lopez NP Reason for Consultation:: Abdominal pain - History of Present Illness Chief Complaint: Chest and upper abdominal pain History of Present Illness: 37M presents with 3 days of constant chest and upper abdominal pain with which he presented to Dr Latif's office. No nausea or vomiting. Denies acid reflux. Has been eating and moving his bowel well. Pain is sharp and does not radiate. He had an EGD and colonoscopy at [facility] where colon polyps were removed but cannot recall the date ( "5 or 6 years ago") or the doctor who performed these. PPI have no effect on his pain. No chills or fevers. He is being evaluated by Dr. Schmitt for a gastric sleeve. He reports that he " passed out" while in a chair as witnessed by his father 3 days ago. Had similar episode last week. No incontinence. Did not bite tongue. Did not fall onto floor. Woke up after a few seconds and resumed conversations without slurring of speech. No recent head trauma. No prodrome. No FH of GI cancer. Efe reports that he has had over 30 ER visit to [facility] for breathing difficulties. During one visit he was told that he had " multiple blood clots " in the abdomen and was started on a "blood thinner". He cannot elaborate on whether or not his involved the liver or intestines. He returned when he ran out and had a subsequent sonogram after which he was told that the clots had resolved. - History Source History Provided By: Patient Limitations to Obtaining History: Poor Historian - Past Medical History Cardio/Vascular: Yes: HTN, Hyperlipdemia Pulmonary: Yes: Asthma, Sleep Apnea Gastrointestinal: Yes: Other (colon polyps 5 years ago, " blood clots" in 2019 ) Hepatobiliary: Yes: Other (fatty liver) Renal/: Yes: Renal Inusuff Psych: Yes: Bipolar Endocrine: Yes: Diabetes Mellitus Additional Medical History: Morbid obesity - Past Surgical History Past Surgical History: Yes: Colonoscopy, Upper Endoscopy - Alcohol/Substance Use Hx Alcohol Use: Yes (rare wine cooler) History of Substance Use: reports: Marijuana (semiregularly) - Smoking History Smoking history: Current every day smoker Have you smoked in the past 12 months: Yes Aproximately how many cigarettes per day: 20 - Social History Usual Living Arrangement: Alone ADL: Independent Occupation: unemployed Place of : [facility] History of Recent Travel: No Home Medications - Allergies Allergies/Adverse Reactions: Allergies Allergy/AdvReac Type Severity Reaction Status Date / Time loratadine [From Claritin] Allergy Verified 06/15/18 14:11 - Home Medications Home Medications: Ambulatory Orders Amlodipine Besylate [Norvasc -] 5 mg PO DAILY 06/15/18 Clonazepam [Klonopin] 2 mg PO DAILY 06/15/18 Quetiapine Fumarate [Seroquel] 300 mg PO BID 06/15/18 Zolpidem Tartrate [Ambien] 10 mg PO DAILY 06/15/18 Aspirin 81 mg PO DAILY 06/17/18 Melatonin/Pyridoxine HCl (B6) [Melatonin 5 mg Tablet] 5 mg PO HS 06/17/18 SYMBICORT 160/4.5mcg - 160 mcg BID 06/17/18 Ventolin HFA Inhaler - 06/17/18 clonazePAM [Klonopin -] 0.5 mg PO BID 06/17/18 Family Disease History - Family Disease History Family Disease History: Diabetes: Father (alcoholic,needs dialysis ), Other: Father, Mother (unknown) Review of Systems - Review of Systems Constitutional: reports: Malaise Eyes: reports: No Symptoms HENT: reports: No Symptoms Neck: reports: No Symptoms Cardiovascular: reports: Chest Pain, Palpitations Respiratory: reports: Exercise Intolerance, SOB on Exertion Gastrointestinal: reports: Abdominal Pain, Bloating Genitourinary: reports: No Symptoms Musculoskeletal: reports: Muscle Pain Physical Exam-GI Vital Signs: Vital Signs Temperature 98.1 F 06/18/18 08:13 Pulse Rate 95 H 06/18/18 08:13 Respiratory Rate 18 06/18/18 12:00 Blood Pressure 139/77 06/18/18 08:13 O2 Sat by Pulse Oximetry (%) 96 06/18/18 04:00 CBC,CMP WBC 8.5 K/mm3 (4.0-10.0) 06/16/18 05:30 RBC 5.23 M/mm3 (4.00-5.60) 06/16/18 05:30 Hgb 15.2 GM/dL (11.7-16.9) 06/16/18 05:30 Hct 44.8 % (35.4-49) 06/16/18 05:30 MCV 85.6 fl (80-96) 06/16/18 05:30 MCH 29.0 pg (25.7-33.7) 06/16/18 05:30 MCHC 33.9 g/dl (32.0-35.9) 06/16/18 05:30 RDW 14.3 % (11.9-15.9) 06/16/18 05:30 Plt Count 214 K/MM3 (134-434) 06/16/18 05:30 MPV 8.3 fl (7.5-11.1) 06/16/18 05:30 Absolute Neuts (auto) 5.1 K/mm3 (1.5-8.0) 06/16/18 05:30 Neutrophils % 60.8 % (42.8-82.8) 06/16/18 05:30 Lymphocytes % 29.4 % (8-40) D 06/16/18 05:30 Monocytes % 7.2 % (3.8-10.2) 06/16/18 05:30 Eosinophils % 1.7 % (0-4.5) 06/16/18 05:30 Basophils % 0.9 % (0-2.0) 06/16/18 05:30 Nucleated RBC % 0 % (0-0) 06/16/18 05:30 Sodium 138 mmol/L (136-145) 06/16/18 05:30 Potassium 3.7 mmol/L (3.5-5.1) 06/16/18 05:30 Chloride 103 mmol/L (98-107) 06/16/18 05:30 Carbon Dioxide 27 mmol/L (21-32) 06/16/18 05:30 Anion Gap 8 MMOL/L (8-16) 06/16/18 05:30 BUN 16 mg/dL (7-18) 06/16/18 05:30 Creatinine 1.2 mg/dL (0.55-1.3) 06/16/18 05:30 Creat Clearance w eGFR > 60 (>60) 06/16/18 05:30 Random Glucose 119 mg/dL (74-106) H 06/16/18 05:30 Calcium 8.5 mg/dL (8.5-10.1) 06/16/18 05:30 Phosphorus 4.1 mg/dL (2.5-4.9) 06/16/18 05:30 Magnesium 2.3 mg/dL (1.8-2.4) 06/16/18 05:30 Total Bilirubin 0.2 mg/dL (0.2-1) 06/15/18 14:58 AST 29 U/L (15-37) 06/15/18 14:58 ALT 53 U/L (13-61) 06/15/18 14:58 Alkaline Phosphatase 95 U/L (45-117) 06/15/18 14:58 Troponin I < 0.02 ng/ml (0.00-0.05) 06/16/18 00:30 B-Natriuretic Peptide 20.8 pg/ml (5-125) 06/15/18 14:58 Total Protein 7.5 g/dl (6.4-8.2) 06/15/18 14:58 Albumin 3.8 g/dl (3.4-5.0) 06/15/18 14:58 Constitutional: Yes: Anxious Eyes: Yes: Conjunctiva Clear HENT: Yes: Atraumatic Neck: Yes: Supple Cardiovascular: Yes: Regular Rate and Rhythm Respiratory: Yes: CTA Bilaterally Gastrointestinal Inspection: Yes: Distention, Other (obese) ...Auscultate: Yes: Normoactive Bowel Sounds ...Palpate: Yes: Soft, Tenderness (diffuse nonlocalizing and not reproducible tenderness, no peritoneal signs) ...Rectal Exam: Yes: Deferred (refused) Genitourinary: Yes: Other (normal testicles, no inguinal hernias) Edema: No Neurological: Yes: Alert, Oriented Labs: CBC, BMP 06/16/18 05:30 06/16/18 05:30 INR, PTT INR 1.05 (0.83-1.09) 06/15/18 14:58 Imaging - Results Cat Scan: Report Reviewed (Ottoniel Palma Name: EFE MACHUCA DEPARTMENT OF RADIOLOGY Phys: Marcia Helms : 1980 Age: 37 Sex: M [facility] Acct: [id number] Loc: [address] Exam Date: 06/18/18 Status: [place] [address] Unit Number: [id number] EXAM#: TYPE/EXAM: RESULT: [id number] CT/ABDOMEN PELVIS CT WITH CONTR History : abdominal pain CT Scan of the abdomen and pelvis with oral and IV contrast; 1 or 20 cc Omnipaque 350 FINDINGS: Artifacts from the CT scanner noted in the central portion of the imaging which does limit this evaluation The liver appears to be fatty with heterogeneous density pattern The spleen, adrenal glands and pancreas are unremarkable. There are no gallstones. There is no hydronephrosis, renal masses or renal calculi. There is no retroperitoneal lymphadenopathy. There is no abdominal aortic aneurysm. The appendix is identified and there appears to be a small appendicolith in the tip of the appendix. There is a small fat-containing ventral hernia There are no fluid collections in the abdomen or pelvis. There is no bowel obstruction. The urinary bladder and prostate are unremarkable. IMPRESSION: Limited by artifact as described Fatty heterogeneous liver Although no definitive inflammatory changes of the appendix appears to be a small appendicolith. This should be correlated clinically and with possible surgical consult . Fat-containing ventral hernia Reported By: Eduar Vasquez MD 06/18/18 1038 Technologist: Neisha Molina Transcribed Date/Time: 06/18/18 1038 Repair Order Clerk: Eduar Vasquez Printed Date/Time: By: Signed by: Eduar Vasquez Signed on: 18-Jun-2018 10:39) Ultrasound: Report Reviewed (Ottoniel Palma Name: EFE MACHUCA DEPARTMENT OF RADIOLOGY Phys: Tnaika Stringer RESIDENT : 1980 Age: 37 Sex: M [facility] Acct: [id number] Loc: [address] Exam Date: 06/15/18 Status: [place] [address] Unit Number: [id number] EXAM#: TYPE/EXAM: RESULT: [id number] US/LIVER US Liver ultrasound Clinical information given: evaluate for portal vein thrombosis visualization is very limited due to body habitus. There is diffuse fatty infiltration of the liver with associated hepatomegaly. No gross mass lesion is seen. The gallbladder demonstrates no obvious pathology. The main portal vein appears to be patent with physiologic flow direction. The partially visualized pancreas demonstrates no gross abnormality. No free intraperitoneal fluid is seen. There is no right hydronephrosis. Impression: Limited exam due to body habitus. The main portal vein appears to be patent with physiologic flow direction. Diffuse hepatic steatosis is noted. Reported By: Mitchell Hitchcock MD 06/15/181934 Technologist: Jesi Salgado Transcribed Date/Time: 06/15/181934 Repair Order Clerk: Mitchell Hitchcock Printed Date/Time: By: Signed by: Mitchell Hitchcock Signed on: 2018 19:36) Problem List - Problems (1) Abdominal pain Assessment/Plan: Efe was eating a solid food lunch with vigor when I arrived and tells me that his pain is not affected by eating or defecation. It is not positional The epigastric location does not lend support to appendicitis suggested by the appendicolith. No portal vein thrombosis on ultrasound. Intestinal angina would be aggravated by eating so this appears unlikely. He deneis reflux or early satiety. NO recent weight loss. His obesity suggest that he may have hiatal herniation pain. Will place on clear liquids until the nature of this pain is better elucidated. I anticipate that Dr. Schmitt will be doing an EGD as part of his bariatric evaluation which would be helpful. Can continue PPI empirically Code(s): R10.9 - UNSPECIFIED ABDOMINAL PAIN Qualifiers: Abdominal location: epigastric Qualified Code(s): R10.13 - Epigastric pain (2) History of colon polyps Code(s): Z86.010 - PERSONAL HISTORY OF COLONIC POLYPS (3) Fatty (change of) liver, not elsewhere classified Code(s): K76.0 - FATTY (CHANGE OF) LIVER, NOT ELSEWHERE CLASSIFIED (4) Bipolar disorder Code(s): F31.9 - BIPOLAR DISORDER, UNSPECIFIED (5) Chest pain Code(s): R07.9 - CHEST PAIN, UNSPECIFIED (6) Diabetes mellitus Code(s): E11.9 - TYPE 2 DIABETES MELLITUS WITHOUT COMPLICATIONS (7) HTN (hypertension) Code(s): I10 - ESSENTIAL (PRIMARY) HYPERTENSION (8) Severe obesity (BMI >= 40) Code(s): E66.01 - MORBID (SEVERE) OBESITY DUE TO EXCESS CALORIES Assessment/Plan Impression: Abdominal pain with no clear cut etiology Fatty liver due to morbid obesity Personal history of colon polyps Plan: Clear liquids Surgical evaluation pending Inform Dr Schmitt of patient's admission. Perhaps he would undertake an EGD as part of bariatric surgery preparation which I can then discuss with him. PPI empirically Will order UGI and small bowel series to asses for sliding hiatal hernia, ulcer and Crohn's Disease
[2018-06-18] MEDS: BUDESONIDE/FORMETEROL FUMARATE 160/4.5 mcg INHALER IH SCH ×2 (12:48→21:30)
--- NOTE | 2018-06-18 13:43 | CONSULT ---
Consult Consult Specialty:: General Surgery Reason for Consultation:: apendicolith on CT scan - History of Present Illness Chief Complaint: epigastic abdominal pain chronic History of Present Illness: 37 yo male PMH Severe Obesity, HTN, HLD, DM, Bipolar Disorder, ?Portal Vein Thrombosis (no AC), RENNY( non-working CPAP machine). Who presents to the ED with midsternal chest pain and 2 syncopal episodes (06/10). Patient describes the pain as pressure non-radiating. Patient reports having two syncopal events on separate occasions lasting several seconds to minutes, with no memory recall of the events. Patient reports pending bariatric surgery- Gastric Sleeve in the process of pre-op testing by Dr. Gretta Schmitt. Patient denies fever, chills, cough, CASTILLO, palpitations, AP, N/V/D, constipation, dysuria. we were called to assess. - History Source History Provided By: Patient, Medical Record Limitations to Obtaining History: No Limitations - Past Medical History Cardio/Vascular: Yes: HTN, Hyperlipdemia Pulmonary: Yes: Asthma, Sleep Apnea Gastrointestinal: Yes: Other (colon polyps 5 years ago, " blood clots" in 2019 ) Hepatobiliary: Yes: Other (fatty liver) Renal/: Yes: Renal Inusuff Psych: Yes: Bipolar Endocrine: Yes: Diabetes Mellitus Additional Medical History: Morbid obesity - Past Surgical History Past Surgical History: Yes: Colonoscopy, Upper Endoscopy - Alcohol/Substance Use Hx Alcohol Use: Yes (rare wine cooler) History of Substance Use: reports: Marijuana (semiregularly) - Smoking History Smoking history: Current every day smoker Have you smoked in the past 12 months: Yes Aproximately how many cigarettes per day: 20 - Social History Usual Living Arrangement: Alone ADL: Independent Occupation: unemployed History of Recent Travel: No Home Medications - Allergies Allergies/Adverse Reactions: Allergies Allergy/AdvReac Type Severity Reaction Status Date / Time loratadine [From Claritin] Allergy Verified 06/15/18 14:11 - Home Medications Home Medications: Ambulatory Orders Amlodipine Besylate [Norvasc -] 5 mg PO DAILY 06/15/18 Clonazepam [Klonopin] 2 mg PO DAILY 06/15/18 Quetiapine Fumarate [Seroquel] 300 mg PO BID 06/15/18 Zolpidem Tartrate [Ambien] 10 mg PO DAILY 06/15/18 Aspirin 81 mg PO DAILY 06/17/18 Melatonin/Pyridoxine HCl (B6) [Melatonin 5 mg Tablet] 5 mg PO HS 06/17/18 SYMBICORT 160/4.5mcg - 160 mcg BID 06/17/18 Ventolin HFA Inhaler - 06/17/18 clonazePAM [Klonopin -] 0.5 mg PO BID 06/17/18 Family Disease History - Family Disease History Family Disease History: Diabetes: Father (alcoholic,needs dialysis ), Other: Father, Mother (unknown) Review of Systems - Review of Systems Constitutional: denies: Chills, Fever Eyes: denies: Blind Spots, Recent Change in Vision HENT: denies: Difficult Swallowing, Ocular Prosthesis, Throat Pain Respiratory: denies: Cough, SOB Gastrointestinal: reports: Abdominal Pain, Bloating, Dysphagia, Indigestion. denies: Constipation, Diarrhea Genitourinary: denies: Discharge, Incontinence, Testicular Pain, Testicular Swelling Breasts: reports: No Symptoms Reported. denies: Pain Musculoskeletal: denies: Crepitus, Joint Pain, Muscle Weakness Integumentary: denies: Change in Color, Incision, Lesions Neurological: reports: Syncope. denies: Headache, Seizure, Tremors Endocrine: denies: Unexplained Weight Gain, Unexplained Weight Loss Hematology/Lymphatic: denies: Easily Bruised, Excessive Bleeding Psychiatric: reports: Anxiety, Paranoia. denies: Depression Physical Exam Vital Signs: Vital Signs Temperature 97.6 F 06/18/18 13:21 Pulse Rate 102 H 06/18/18 13:21 Respiratory Rate 20 06/18/18 13:21 Blood Pressure 119/67 06/18/18 13:21 O2 Sat by Pulse Oximetry (%) 96 06/18/18 04:00 Constitutional: Yes: Well Nourished, No Distress, Calm, Obese Eyes: Yes: Conjunctiva Clear, EOM Intact HENT: Yes: Atraumatic, Normocephalic Neck: Yes: Supple, Trachea Midline Cardiovascular: Yes: Regular Rate and Rhythm, S1, S2 Respiratory: Yes: Regular, CTA Bilaterally Gastrointestinal: Yes: Normal Bowel Sounds, Soft, Abdomen, Obese, Tenderness, Epigastrium (equivocal). No: Tenderness, Tenderness, Rebound ...Rectal Exam: Yes: Deferred Renal/: No: CVA Tenderness - Left, CVA Tenderness - Right, Vaginal Bleeding Breast(s): No: Nipple Inversion, Skin Changes Musculoskeletal: No: Muscle Pain, Muscle Weakness Extremities: No: Cool, Cyanosis Edema: No Peripheral Pulses WNL: Yes Integumentary: No: Incision, Jaundice, Pressure Ulcer Neurological: Yes: Alert, Oriented. No: Confusion Psychiatric: Yes: Alert, Oriented Labs: CBC, BMP 06/16/18 05:30 06/16/18 05:30 Imaging - Results Cat Scan: Report Reviewed, Image Reviewed (small apenicolith without adjacent inflammatory changes) Problem List - Problems (1) Appendicolith Assessment/Plan: 37yo male MMP with unexplained symptoms of reported syncope, GERD gastritis and morbid obesity. There is also an incidental finding of appendicolith on CT. He should perhaps have it removed during his up coming bariatric procedure. Please contact Dr. Schmitt to arrange for this. No other acute surgical inetrvention is indicated. GI regimen PPI vs H2 refugio f/u with PMD Thank you for the opportunity to participate in the care of this patient. Code(s): K38.9 - DISEASE OF APPENDIX, UNSPECIFIED (2) Bipolar disorder Code(s): F31.9 - BIPOLAR DISORDER, UNSPECIFIED (3) Chest pain Code(s): R07.9 - CHEST PAIN, UNSPECIFIED (4) HLD (hyperlipidemia) Code(s): E78.5 - HYPERLIPIDEMIA, UNSPECIFIED (5) HTN (hypertension) Code(s): I10 - ESSENTIAL (PRIMARY) HYPERTENSION (6) Severe obesity (BMI >= 40) Code(s): E66.01 - MORBID (SEVERE) OBESITY DUE TO EXCESS CALORIES
[2018-06-18] MEDS: clonazePAM 0.5 MG TABLET PO PRN (14:14)
[2018-06-18] MEDS: clonazePAM 2 MG TABLET PO SCH (21:26)
[2018-06-18] MEDS: QUEtiapine FUMARATE 300 MG TABLET PO SCH (21:26)
[2018-06-18] MEDS: ZOLPIDEM TARTRATE 5 MG TABLET PO PRN (21:26)
[2018-06-18 23:20] LABS: URINE APPEARANCE CLEAR; URINE BILIRUBIN NEGATIVE (<2.0 mg/dL); URINE COLOR COLORLESS; URINE GLUCOSE (UA) NEGATIVE (NEGATIVE); URINE KETONE NEGATIVE (NEGATIVE); URINE LEUK ESTERASE NEGATIVE (NEGATIVE); URINE NITRITE NEGATIVE (NEGATIVE); URINE PROTEIN NEGATIVE (NEGATIVE); URINE UROBILINOGEN NEGATIVE mg/dL (0.2-1.0)
--- NOTE | 2018-06-19 10:38 | PN ---
Progress Note, Physician Chief Complaint: Chest pain Syncopal episode Abdominal Pain History of Present Illness: NAD in bed c/o lower abdominal pain CT abd reviewed stone in appendix? HCS history Patient Name: Ketan Lang Date: 1980 Address: [address] [place] [address] [place] [address] Sex: Male Rx Written Rx Dispensed Drug Quantity Days Supply Prescriber Name 06/01/2018 06/10/2018 clonazepam 0.5 mg tablet 60 30 Justin, Emilia G 06/01/2018 06/01/2018 zolpidem tartrate 10 mg tablet 30 30 Justin, Emilia G 02/14/2018 05/01/2018 zolpidem tartrate 10 mg tablet 30 30 Justin, Emilia G 04/14/2018 04/23/2018 clonazepam 2 mg tablet 30 30 Justin, Emilia G 04/04/2018 04/07/2018 clonazepam 2 mg tablet 15 15 Justin, Emilia G 01/20/2018 03/29/2018 zolpidem tartrate 10 mg tablet 30 30 Justin, Emilia G 03/08/2018 03/11/2018 clonazepam 2 mg tablet 30 30 Justin, Emilia G 03/06/2018 03/07/2018 clonazepam 2 mg tablet 5 5 Edyta Orellana (MS) 02/14/2018 02/24/2018 zolpidem tartrate 10 mg tablet 30 30 Justin, Emilia G CTA abd still pending - Current Medication List Current Medications: Active Medications Acetaminophen (Tylenol -) 650 mg PO Q6H PRN PRN Reason: FEVER Last Admin: 06/16/18 21:25 Dose: 650 mg Aspirin (Asa -) 81 mg PO DAILY [facility] Last Admin: 06/18/18 09:25 Dose: 81 mg Budesonide/Formoterol Fumarate (Symbicort 160/4.5mcg -) 2 puff IH BID [facility] Last Admin: 06/18/18 21:30 Dose: 2 puff Clonazepam (Klonopin -) 2 mg PO HS [facility] Last Admin: 06/18/18 21:26 Dose: 2 mg Clonazepam (Klonopin -) 0.5 mg PO 0800,1400 PRN PRN Reason: ANXIETY Last Admin: 06/18/18 14:14 Dose: 0.5 mg Losartan Potassium (Cozaar -) 50 mg PO DAILY [facility] Last Admin: 06/18/18 09:25 Dose: 50 mg Nicotine (Nicoderm Patch -) 14 mg TD DAILY [facility] Last Admin: 06/18/18 09:25 Dose: 14 mg Pantoprazole Sodium (Protonix -) 40 mg PO DAILY [facility] Last Admin: 06/18/18 09:25 Dose: 40 mg Quetiapine Fumarate (Seroquel -) 600 mg PO HS [facility] Last Admin: 06/18/18 21:26 Dose: 600 mg Zolpidem Tartrate (Ambien -) 10 mg PO HS PRN PRN Reason: INSOMNIA Last Admin: 06/18/18 21:26 Dose: 10 mg - Objective Vital Signs: Vital Signs Temperature 98.2 F 06/19/18 08:02 Pulse Rate 91 H 06/19/18 08:02 Respiratory Rate 20 06/19/18 08:02 Blood Pressure 121/64 06/19/18 08:02 O2 Sat by Pulse Oximetry (%) 96 06/19/18 07:27 Constitutional: Yes: Well Nourished, No Distress, Calm, Obese Cardiovascular: Yes: Regular Rate and Rhythm Respiratory: Yes: Regular Gastrointestinal: Yes: Abdomen, Obese, Hypoactive Bowel Sounds Genitourinary: Yes: WNL Musculoskeletal: Yes: WNL Extremities: Yes: WNL Edema: No Peripheral Pulses WNL: Yes Neurological: Yes: Alert, Oriented Psychiatric: Yes: Alert, Oriented Labs: CBC, BMP 06/16/18 05:30 06/16/18 05:30 INR, PTT INR 1.05 (0.83-1.09) 06/15/18 14:58 Problem List - Problems (1) Abdominal pain Assessment/Plan: -CT abd reviewed -GI and Surgical consult -clear liquid diet -CTA abd Pending Code(s): R10.9 - UNSPECIFIED ABDOMINAL PAIN Qualifiers: Abdominal location: epigastric Qualified Code(s): R10.13 - Epigastric pain (2) Bipolar disorder Assessment/Plan: Continue beds Code(s): F31.9 - BIPOLAR DISORDER, UNSPECIFIED (3) Chest pain Assessment/Plan: -cardiology on board -to follow up with cardiology as outpatient -Carotid US, EKG, echo unremarkable -chest pain reproducible on palpation -continue with aspirin daily Code(s): R07.9 - CHEST PAIN, UNSPECIFIED (4) Severe obesity (BMI >= 40) Code(s): E66.01 - MORBID (SEVERE) OBESITY DUE TO EXCESS CALORIES Assessment/Plan See problem list Self ambulatory
[2018-06-19] MEDS: PANTOPRAZOLE 40 MG TABLET (FP) PO SCH (10:58)
[2018-06-19] MEDS: clonazePAM 0.5 MG TABLET PO PRN ×2 (10:58→15:38)
[2018-06-19] MEDS: ASPIRIN 81 MG CHEWABLE TABLETS PO SCH (10:58)
[2018-06-19] MEDS: LOSARTAN POTASSIUM 50 MG TABLET (FP) PO SCH (10:58)
[2018-06-19] MEDS: NICOTINE 14 MG/24 HOURS TOPICAL PATCH TD SCH (10:58)
[2018-06-19] MEDS: BUDESONIDE/FORMETEROL FUMARATE 160/4.5 mcg INHALER IH SCH ×2 (11:00→21:02)
[2018-06-19] MEDS: NICOTINE 21 MG/24 HOURS TOPICAL PATCH TD SCH (17:29)
[2018-06-19] MEDS ORDERED: PT OWN MED DRAWER 7, Y5N ONE (20:01)
[2018-06-19] MEDS: QUEtiapine FUMARATE 300 MG TABLET PO SCH (21:01)
[2018-06-19] MEDS: clonazePAM 2 MG TABLET PO SCH (21:02)
[2018-06-19] MEDS: ZOLPIDEM TARTRATE 5 MG TABLET PO PRN (21:02)
[2018-06-20 09:11] LABS: BASO % 0.6 % (0-2.0); EOS % 2.9 % (0-4.5); HEMATOCRIT 44.8 % (35.4-49); LYMPH % 31.7 % (8-40); MCH 28.8 pg (25.7-33.7); MCHC 33.4 g/dl (32.0-35.9); MEAN CELL VOLUME 86.3 fl (80-96); MEAN PLT VOLUME 8.6 fl (7.5-11.1); MONO % 9.5 % (3.8-10.2); NEUT % 55.3 % (42.8-82.8); PLATELET COUNT 182 K/MM3 (134-434); RBC 5.19 M/mm3 (4.00-5.60); RDW 14.6 % (11.9-15.9); WHITE BLOOD COUNT 5.7 K/mm3 (4.0-10.0)
[2018-06-20] MEDS ORDERED: PT OWN MED DRAWER 7, Y5N ONE (09:16)
[2018-06-20 09:39] LABS: ALBUMIN 3.4 g/dl (3.4-5.0); ALK PHOS 92 U/L (45-117); ANION GAP 7 MMOL/L (8-16); BILIRUBIN,TOTAL 0.4 mg/dL (0.2-1); BLOOD UREA NITROGEN 9 mg/dL (7-18); CALCIUM 9.1 mg/dL (8.5-10.1); CHLORIDE 101 mmol/L (98-107); CO2 30 mmol/L (21-32); CREATININE 1.2 mg/dL (0.55-1.3); GLUCOSE,RANDOM 96 mg/dL (74-106); SGOT/AST 14 U/L (15-37); SGPT/ALT 48 U/L (13-61); SODIUM 138 mmol/L (136-145); TOT PROT 6.7 g/dl (6.4-8.2)
[2018-06-20] MEDS: PANTOPRAZOLE 40 MG TABLET (FP) PO SCH (09:54)
[2018-06-20] MEDS: ASPIRIN 81 MG CHEWABLE TABLETS PO SCH (09:54)
[2018-06-20] MEDS: LOSARTAN POTASSIUM 50 MG TABLET (FP) PO SCH (09:54)
[2018-06-20] MEDS: NICOTINE 21 MG/24 HOURS TOPICAL PATCH TD SCH (09:54)
[2018-06-20] MEDS: BUDESONIDE/FORMETEROL FUMARATE 160/4.5 mcg INHALER IH SCH ×2 (09:55→22:14)
[2018-06-20] MEDS ORDERED: POLYETHYLENE GLYCOL 3350 119 GM BTL PO ONE (10:19)
--- NOTE | 2018-06-20 10:25 | DS ---
Physical Examination Vital Signs: Vital Signs Temperature 98.0 F 06/20/18 01:00 Pulse Rate 76 06/20/18 09:00 Respiratory Rate 20 06/20/18 09:00 Blood Pressure 133/73 06/20/18 09:00 O2 Sat by Pulse Oximetry (%) 98 06/20/18 08:37 Constitutional: Yes: Calm, Obese Cardiovascular: Yes: Regular Rate and Rhythm, S1, S2 Respiratory: Yes: CTA Bilaterally Gastrointestinal: Yes: Normal Bowel Sounds, Soft, Abdomen, Obese Neurological: Yes: Alert, Oriented Labs: CBC, BMP 06/20/18 08:20 06/20/18 08:20 Discharge Summary Reason For Visit: SYNCOPE,CHEST PAIN Current Active Problems Abdominal pain (Acute) Appendicolith (Acute) Bipolar disorder (Acute) Chest pain (Acute) Diabetes mellitus (Acute) Fatty (change of) liver, not elsewhere classified (Acute) HLD (hyperlipidemia) (Acute) HTN (hypertension) (Acute) History of colon polyps (Acute) Portal vein thrombosis (Acute) Severe obesity (BMI >= 40) (Acute) Syncope (Acute) Other Procedures: ekg. echo umremarkable. CTA no pE. ct abdomen/pelvis_ appendolith in tip of appendix Hospital Course: CHIEF COMPLAINT: Chest Pain, Syncope PCP: Dr. Latif Psych Nurse: Antonina ([phone]) HISTORY OF PRESENT ILLNESS: This is a 37 y/o young man with Severe Obesity, HTN, HLD, DM, Bipolar Disorder, ?Portal Vein Thrombosis (no AC), RENNY( non-working CPAP machine). Who presents to the ED with midsternal chest pain and 2 syncopal episodes (06/10). Patient describes the pain as pressure non-radiating. Patient reports having two syncopal events on separate occasions lasting several seconds to minutes, with no memory recall of the events. Patient reports pending bariatric surgery- Gastric Sleeve in the process of pre-op testing. Patient denies fever, chills, cough, CASTILLO, palpitations, AP, N/V/D, constipation, dysuria ER course was notable for: (1) Troponin I neg x1 (2) EKG- NSR (3) CTA- no PE or acute intrathoracic pathology in hospital: patient seen by GI and surgery got ct scan and got UGI series but inconclusive bc of contrast from ct scan to get stress test today then oscar hernandezlow up with dr Schmitt and cardiology and GI as outpatient Condition: Stable - Instructions Diet, Activity, Other Instructions: Patient to follow up with PMD in 1 week Patient to follow up with Director Of Intelligence Dr. Vargas [phone] Follow up with Digital Marketing Analyst Dr. Chow Follow up with Neurologist Dr. Shelley follow up with GI doctor as outpatient for further work up and GI series continue with scheduled medications return to ER if SOB on exertion, chest pain, change in mental status Referrals: Mitchell Chow MD [Staff Physician] - Bob Shelley MD [Staff Physician] - Jairo Vargas MD [Staff Physician] - Sissy Latif MD [Primary Care Provider] - 1 Week Disposition: HOME - Home Medications Comprehensive Discharge Medication List: Ambulatory Orders Amlodipine Besylate [Norvasc -] 5 mg PO DAILY 06/15/18 Clonazepam [Klonopin] 2 mg PO DAILY 06/15/18 Quetiapine Fumarate [Seroquel] 300 mg PO BID 06/15/18 Zolpidem Tartrate [Ambien] 10 mg PO DAILY 06/15/18 Aspirin 81 mg PO DAILY 06/17/18 Melatonin/Pyridoxine HCl (B6) [Melatonin 5 mg Tablet] 5 mg PO HS 06/17/18 SYMBICORT 160/4.5mcg - 160 mcg BID 06/17/18 Ventolin HFA Inhaler - 06/17/18 clonazePAM [Klonopin -] 0.5 mg PO BID 06/17/18
--- NOTE | 2018-06-20 10:30 | PN ---
Progress Note (short form) - Note Progress Note: plan NPO except meds stress test today after stress test get mrialax and regular diet if stress test negative then dc home and follow up with PMD UGI series can be done as outpatient as today UGI series was inconclusive given contrast from ct scan of abdomen was present miralax one dose after stress test today Problem List - Problems (1) Bipolar disorder Code(s): F31.9 - BIPOLAR DISORDER, UNSPECIFIED (2) Chest pain Code(s): R07.9 - CHEST PAIN, UNSPECIFIED (3) HLD (hyperlipidemia) Code(s): E78.5 - HYPERLIPIDEMIA, UNSPECIFIED (4) Severe obesity (BMI >= 40) Code(s): E66.01 - MORBID (SEVERE) OBESITY DUE TO EXCESS CALORIES (5) HTN (hypertension) Code(s): I10 - ESSENTIAL (PRIMARY) HYPERTENSION
[2018-06-20] MEDS ORDERED: REGADENOSON 0.4 MG/5 ML PRE-FILLED SYRINGE IVPUSH ONE ×2 (12:00→12:52)
--- NOTE | 2018-06-20 15:43 | PN ---
Progress Note (short form) - Note Progress Note: clear liquis npo past midnight gi seriss in AM and awaiting stress test result then dc home in AM after gi series Problem List - Problems (1) Bipolar disorder Code(s): F31.9 - BIPOLAR DISORDER, UNSPECIFIED (2) Chest pain Code(s): R07.9 - CHEST PAIN, UNSPECIFIED (3) HLD (hyperlipidemia) Code(s): E78.5 - HYPERLIPIDEMIA, UNSPECIFIED (4) Severe obesity (BMI >= 40) Code(s): E66.01 - MORBID (SEVERE) OBESITY DUE TO EXCESS CALORIES (5) HTN (hypertension) Code(s): I10 - ESSENTIAL (PRIMARY) HYPERTENSION
[2018-06-20] MEDS: clonazePAM 0.5 MG TABLET PO PRN (17:57)
[2018-06-20] MEDS: ZOLPIDEM TARTRATE 5 MG TABLET PO PRN (22:11)
[2018-06-20] MEDS: QUEtiapine FUMARATE 300 MG TABLET PO SCH (22:11)
[2018-06-20] MEDS: clonazePAM 2 MG TABLET PO SCH (22:12)
[2018-06-21 08:32] VITALS: BP 115/59; PULSE 94
[2018-06-21 08:37] VITALS: TEMP 98
[2018-06-21] MEDS ORDERED: PT OWN MED DRAWER 7, Y5N ONE ×2 (10:14→14:21)
[2018-06-21] MEDS: ASPIRIN 81 MG CHEWABLE TABLETS PO SCH (10:27)
[2018-06-21] MEDS: LOSARTAN POTASSIUM 50 MG TABLET (FP) PO SCH (10:27)
[2018-06-21] MEDS: NICOTINE 21 MG/24 HOURS TOPICAL PATCH TD SCH (10:27)
[2018-06-21] MEDS: BUDESONIDE/FORMETEROL FUMARATE 160/4.5 mcg INHALER IH SCH (10:28)
--- NOTE | 2018-06-21 10:59 | PN ---
Progress Note, Physician Chief Complaint: patient seen and examined repeat UGI series could not be done bc of contrast in colon stress test negative to eat and then go home today - Current Medication List Current Medications: Active Medications Acetaminophen (Tylenol -) 650 mg PO Q6H PRN PRN Reason: FEVER Last Admin: 06/16/18 21:25 Dose: 650 mg Aspirin (Asa -) 81 mg PO DAILY [facility] Last Admin: 06/21/18 10:27 Dose: 81 mg Budesonide/Formoterol Fumarate (Symbicort 160/4.5mcg -) 2 puff IH BID [facility] Last Admin: 06/21/18 10:28 Dose: 2 puff Clonazepam (Klonopin -) 2 mg PO HS [facility] Last Admin: 06/20/18 22:12 Dose: 2 mg Clonazepam (Klonopin -) 0.5 mg PO 0800,1400 PRN PRN Reason: ANXIETY Last Admin: 06/20/18 17:57 Dose: 0.5 mg Losartan Potassium (Cozaar -) 50 mg PO DAILY [facility] Last Admin: 06/21/18 10:27 Dose: 50 mg Nicotine (Nicoderm Patch -) 21 mg TD DAILY [facility] Last Admin: 06/21/18 10:27 Dose: 21 mg Pantoprazole Sodium (Protonix -) 40 mg PO DAILY [facility] Last Admin: 06/20/18 09:54 Dose: 40 mg Quetiapine Fumarate (Seroquel -) 600 mg PO HS [facility] Last Admin: 06/20/18 22:11 Dose: 600 mg Zolpidem Tartrate (Ambien -) 10 mg PO HS PRN PRN Reason: INSOMNIA Last Admin: 06/20/18 22:11 Dose: 10 mg - Objective Vital Signs: Vital Signs Temperature 98.0 F 06/21/18 08:31 Pulse Rate 94 H 06/21/18 08:31 Respiratory Rate 20 06/21/18 08:31 Blood Pressure 115/59 L 06/21/18 08:31 O2 Sat by Pulse Oximetry (%) 98 06/21/18 04:00 Constitutional: Yes: Calm Cardiovascular: Yes: Regular Rate and Rhythm, S1, S2 Respiratory: Yes: CTA Bilaterally Gastrointestinal: Yes: Soft, Abdomen, Obese Neurological: Yes: Alert, Oriented Labs: CBC, BMP 06/20/18 08:20 06/20/18 08:20 INR, PTT INR 1.05 (0.83-1.09) 06/15/18 14:58 Problem List - Problems (1) Bipolar disorder Assessment/Plan: psych eval noted seroquel,klonopin, Code(s): F31.9 - BIPOLAR DISORDER, UNSPECIFIED (2) Chest pain Assessment/Plan: atypical chest pain CE 3 sets negative echo done aspirin CTA negative carotid doppler negative ekg NSR stress test negative Code(s): R07.9 - CHEST PAIN, UNSPECIFIED (3) HLD (hyperlipidemia) Assessment/Plan: lipd panel ok Code(s): E78.5 - HYPERLIPIDEMIA, UNSPECIFIED (4) Severe obesity (BMI >= 40) Assessment/Plan: bipap at night check [id number] follow up with dr Schmitt for bariatric surgery stress test done Code(s): E66.01 - MORBID (SEVERE) OBESITY DUE TO EXCESS CALORIES (5) HTN (hypertension) Assessment/Plan: stop norvasc given leg swelling losartan Code(s): I10 - ESSENTIAL (PRIMARY) HYPERTENSION
[2018-06-21] MEDS: PANTOPRAZOLE 40 MG TABLET (FP) PO SCH (12:11)
== END 2018-06-21 14:23 | disposition home or self-care (01) ==
LOC: JER 14:03 → JERBED 18:43 → J7W 06-16 13:45
PROVIDERS: ADMIT Family Medicine; ATTEND Family Medicine
PROC: 3E033GC Introduction of Other Therapeutic Substance into Peripheral Vein, Percutaneous Approach (ICD-10-PCS; principal; 2018-06-15)
PROC: 3E0337Z Introduction of Electrolytic and Water Balance Substance into Peripheral Vein, Percutaneous Approach (ICD-10-PCS; 2018-06-15)
PROC: 3E0F7GC Introduction of Other Therapeutic Substance into Respiratory Tract, Via Natural or Artificial Opening (ICD-10-PCS; 2018-06-15)
DX: R07.9 Chest pain, unspecified (principal); R55 Syncope and collapse; I10 Essential (primary) hypertension; E78.5 Hyperlipidemia, unspecified; E11.9 Type 2 diabetes mellitus without complications; F31.9 Bipolar disorder, unspecified; G47.33 Obstructive sleep apnea (adult) (pediatric); F17.210 Nicotine dependence, cigarettes, uncomplicated; K76.0 Fatty (change of) liver, not elsewhere classified; R10.13 Epigastric pain; K38.9 Disease of appendix, unspecified; E66.01 Morbid (severe) obesity due to excess calories; Z68.43 Body mass index [BMI] 50.0-59.9, adult; Z86.010 Personal history of colon polyps; Z79.82 Long term (current) use of aspirin
CPT/HCPCS: 36415; 71045-TC-FY; 71275-TC; 74018-TC-FY; 74174-TC; 74177-TC; 76705-TC; 78452-TC; 80048; 80053; 81003; 82150; 83690; 83735; 83880; 84100; 84155; 84165; 84484; 85025; 85610; 85730; 86140; 86850; 86900; 86901; 93005; 93010; 93017; 93306-TC; 93880-TC; 94640; 94660; 96361; 96365; 96375; 99283-25; A9502; G0378; J1245; J7030; Q9967

== ENCOUNTER 2018-06-22 16:31 | Emergency (ER) | payer OTHER ==
[2018-06-22 16:53] VITALS: BMI 55.5
--- NOTE | 2018-06-22 17:39 | PDOC ---
History of Present Illness - General Chief Complaint: Pain, Acute Stated Complaint: PAIN Time Seen by Provider: 06/22/18 17:16 History Source: Patient Exam Limitations: No Limitations - History of Present Illness Initial Comments: 06/22/18 18:45 Patient is a 37-year-old male with past medical history of bipolar disorder, obesity, hypertension, hyperlipidemia, diabetes who presents to the emergency department today for left flank pain since yesterday. Patient states that the pain is increased in intensity. He points to his left side as to where it hurts the most. Also admits to associated nausea without vomiting. Denies fevers, chills, chest pain, shortness of breath, frequency, urgency, hematuria, urinary retention. Pt was recently evaluated in the ED for RLQ pain and had an appendolith, without evidence of appendicitis. Last CT scan on 06/20/18. Past History - Travel Traveled outside of the country in the last 30 days: No Close contact w/someone who was outside of country & ill: No - Past Medical History Allergies/Adverse Reactions: Allergies Allergy/AdvReac Type Severity Reaction Status Date / Time loratadine [From Claritin] Allergy Verified 06/22/18 16:53 Home Medications: Ambulatory Orders Quetiapine Fumarate [Seroquel] 300 mg PO BID 06/15/18 Aspirin 81 mg PO DAILY 06/17/18 Melatonin/Pyridoxine HCl (B6) [Melatonin 5 mg Tablet] 5 mg PO HS 06/17/18 SYMBICORT 160/4.5mcg - 160 mcg IH BID 06/17/18 Ventolin HFA Inhaler - 2 puff IH ASDIR PRN 06/17/18 clonazePAM [Klonopin -] 0.5 mg PO BID 06/17/18 Losartan Potassium [Cozaar -] 50 mg PO DAILY #30 tablet MDD 1 06/21/18 Zolpidem Tartrate [Ambien] 10 mg PO HS 06/22/18 Oxycodone HCl 10 mg PO QID PRN #10 tablet MDD 4 06/23/18 COPD: No Diabetes: Yes HTN: Yes Hypercholesterolemia: Yes Seizures: Yes (bipolar) - Suicide/Smoking/Psychosocial Hx Smoking History: Never smoked Have you smoked in the past 12 months: Yes Number of Cigarettes Smoked Daily: 20 Hx Alcohol Use: Yes (rare wine cooler) Drug/Substance Use Hx: Yes Substance Use Type: Marijuana Hx Substance Use Treatment: No Review of Systems - Review of Systems Able to Perform ROS?: Yes Comments:: 06/22/18 18:41 CONSTITUTIONAL: Absent: fever, chills, diaphoresis, generalized weakness, malaise, loss of appetite HEENT: Absent: rhinorrhea, nasal congestion, throat pain, throat swelling, difficulty swallowing, mouth swelling, ear pain, eye pain, visual Changes CARDIOVASCULAR: Absent: chest pain, loss of consciousness, palpitations, irregular heart rate, peripheral edema RESPIRATORY: Absent: cough, shortness of breath, dyspnea with exertion, orthopnea, wheezing, stridor, hemoptysis GASTROINTESTINAL: Present: L flank pain, nausea Absent: abdominal pain, abdominal distension, vomiting, diarrhea, constipation, melena, hematochezia GENITOURINARY: Absent: dysuria, frequency, urgency, hesitancy, hematuria, genital pain MUSCULOSKELETAL: Absent: myalgia, arthralgia, joint swelling SKIN: Absent: rash, itching, pallor HEMATOLOGIC/IMMUNOLOGIC: Absent: easy bleeding, easy bruising, lymphadenopathy, frequent infections ENDOCRINE: Absent: unexplained weight gain, unexplained weight loss, heat intolerance, cold intolerance NEUROLOGIC: Absent: headache, focal weakness or paresthesias, dizziness, unsteady gait, seizure, mental status changes, bladder or bowel incontinence PSYCHIATRIC: Absent: anxiety, depression, suicidal or homicidal ideation, hallucinations. Is the patient limited [place] proficient: No *Physical Exam - Vital Signs Last Vital Signs Temp Pulse Resp BP Pulse Ox 98.3 F 120 H 18 142/67 97 06/22/18 16:51 06/22/18 16:51 06/22/18 16:51 06/22/18 16:51 06/22/18 16:51 - Physical Exam Comments: 06/22/18 18:41 GENERAL: Well developed, well nourished. Morbidly obese Awake and alert. No acute distress. HEENT: Normocephalic, atraumatic. PERRLA, EOMI. No conjunctival pallor. Sclera are non- icteric. Moist mucous membranes. Oropharynx is clear. NECK: Supple. Full ROM. No JVD. Carotid pulses 2+ and symmetric, without bruits. No thyromegaly. No lymphadenopathy. CARDIOVASCULAR: Regular rate and rhythm. No murmurs, rubs, or gallops. Distal pulses are 2+ and symmetric. PULMONARY: No evidence of respiratory distress. Lungs clear to auscultation bilaterally. No wheezing, rales or rhonchi. ABDOMINAL: TTP of the L flank without CVA tenderness. Soft. Non-tender. Non-distended. No rebound or guarding. No organomegaly. Normoactive bowel sounds. MUSCULOSKELETAL Normal range of motion at all joints. No bony deformities or tenderness. No CVA tenderness. EXTREMITIES: No cyanosis. No clubbing. No edema. No calf tenderness. SKIN: Warm and dry. Normal capillary refill. No rashes. No jaundice. NEUROLOGICAL: Alert, awake, appropriate. Cranial nerves 2-12 intact. No deficits to light touch and temperature in face, upper extremities and lower extremities. No motor deficits in the in face, upper extremities and lower extremities. Normoreflexic in the upper and lower extremities. Normal speech. Toes are down- going bilaterally. Gait is normal without ataxia. PSYCHIATRIC: Cooperative. Good eye contact. Appropriate mood and affect. Moderate Sedation - Procedure Monitoring Vital Signs: Procedure Monitoring Vital Signs Temperature 98.3 F 06/22/18 16:51 Pulse Rate 120 H 06/22/18 16:51 Respiratory Rate 18 06/22/18 16:51 Blood Pressure 142/67 06/22/18 16:51 O2 Sat by Pulse Oximetry (%) 97 06/22/18 16:51 ED Treatment Course - LABORATORY CBC & Chemistry Diagram: 06/22/18 17:54 06/22/18 17:54 Medical Decision Making - Medical Decision Making 06/22/18 18:46 Patient is a 37-year-old male with multiple comorbidities who presents to the ER for left flank pain and nausea for 2 days. On exam patient with tenderness palpation of left flank without CVA tenderness. Abdomen exam is benign with no focal tenderness. No rebound or guarding Given recent amount of abdominal CAT scans. We'll start with a ultrasound of the kidneys to evaluate for hydronephrosis or stones. Lab work and urine also obtained. Sign out given to Chon Gorman NP. Patient is pending lab work and scan for disposition. *DC/Admit/Observation/Transfer Diagnosis at time of Disposition: Flank pain - Discharge Dispostion Disposition: HOME Condition at time of disposition: Fair - Prescriptions Prescriptions: Oxycodone HCl 10 mg PO QID PRN #10 tablet MDD 4 PRN Reason: Severe Pain - Referrals Referrals: Sissy Latif MD [Primary Care Provider] - - Patient Instructions Additional Instructions: Laboratory testing and renal ultrasounds were normal today. Take Tylenol or Motrin as directed by manufacturers instructions for pain. Take OxyContin 10 mg every 6 hours as needed for severe pain. Call Dr. Latif office in the morning for reevaluation. Return to emergency department for any concerns - Post Discharge Activity
[2018-06-22] MEDS ORDERED: ACETAMINOPHEN 1000 MG/100 ML VIAL (NON FORMULARY) IVPB ONE (17:52)
[2018-06-22] MEDS ORDERED: ONDANSETRON 4 MG/2 ML VIAL IVPUSH ONE (17:52)
[2018-06-22] MEDS ORDERED: SODIUM CHLORIDE 1,000 ML IV STA (17:53)
[2018-06-22 18:18] LABS: URINE APPEARANCE CLEAR; URINE BILIRUBIN NEGATIVE (<2.0 mg/dL); URINE COLOR LTYELLOW; URINE GLUCOSE (UA) NEGATIVE (NEGATIVE); URINE KETONE NEGATIVE (NEGATIVE); URINE LEUK ESTERASE NEGATIVE (NEGATIVE); URINE NITRITE NEGATIVE (NEGATIVE); URINE PROTEIN NEGATIVE (NEGATIVE)
[2018-06-22 18:22] LABS: BASO % 0.6 % (0-2.0); EOS % 2.1 % (0-4.5); HEMATOCRIT 46.4 % (35.4-49); HEMOGLOBIN 15.7 GM/dL (11.7-16.9); LYMPH % 24.7 % (8-40); MCH 29.3 pg (25.7-33.7); MCHC 33.9 g/dl (32.0-35.9); MEAN CELL VOLUME 86.5 fl (80-96); MEAN PLT VOLUME 8.9 fl (7.5-11.1); MONO % 6.9 % (3.8-10.2); NEUT % 65.7 % (42.8-82.8); PLATELET COUNT 209 K/MM3 (134-434); RBC 5.36 M/mm3 (4.00-5.60); WHITE BLOOD COUNT 9.2 K/mm3 (4.0-10.0)
[2018-06-22 18:44] LABS: INR 1.07 (0.83-1.09); PROTHROMBIN TIME (PATIENT) 12.6 SEC (9.7-13.0)
[2018-06-22 18:57] LABS: ALBUMIN 3.7 g/dl (3.4-5.0); ANION GAP 8 MMOL/L (8-16); BILIRUBIN,TOTAL 0.2 mg/dL (0.2-1); BLOOD UREA NITROGEN 15 mg/dL (7-18); CALCIUM 9.3 mg/dL (8.5-10.1); CHLORIDE 103 mmol/L (98-107); CO2 27 mmol/L (21-32); CREATININE 1.3 mg/dL (0.55-1.3); GLUCOSE,RANDOM 93 mg/dL (74-106); SGPT/ALT 54 U/L (13-61); SODIUM 138 mmol/L (136-145); TOT PROT 7.6 g/dl (6.4-8.2)
[2018-06-22 18:58] LABS: ALK PHOS 122 U/L (45-117); POTASSIUM 4.4 mmol/L (3.5-5.1); SGOT/AST 20 U/L (15-37)
--- NOTE | 2018-06-22 19:13 | PDOC ---
*Physical Exam - Vital Signs Last Vital Signs Temp Pulse Resp BP Pulse Ox 98.3 F 120 H 18 142/67 97 06/22/18 16:51 06/22/18 16:51 06/22/18 16:51 06/22/18 16:51 06/22/18 16:51 - Physical Exam General Appearance: Yes: Appropriately Dressed. No: Apparent Distress Respiratory/Chest: positive: Lungs Clear, Normal Breath Sounds. negative: Respiratory Distress, Accessory Muscle Use Cardiovascular: positive: Regular Rhythm, Regular Rate Gastrointestinal/Abdominal: positive: Normal Bowel Sounds, Soft. negative: Tender ED Treatment Course - LABORATORY CBC & Chemistry Diagram: 06/22/18 17:54 06/22/18 17:54 - ADDITIONAL ORDERS Additional order review: Laboratory Results 06/22/18 06/22/18 06/22/18 18:08 17:54 17:54 PT with INR 12.60 INR 1.07 Sodium 138 Potassium 4.4 Chloride 103 Carbon Dioxide 27 Anion Gap 8 BUN 15 Creatinine 1.3 Creat Clearance w eGFR > 60 Random Glucose 93 Calcium 9.3 Total Bilirubin 0.2 AST 20 ALT 54 Alkaline Phosphatase 122 H Total Protein 7.6 Albumin 3.7 Urine Color Ltyellow Urine Appearance Clear Urine pH 6.0 Ur Specific [place] 1.021 Urine Protein Negative Urine Glucose (UA) Negative Urine Ketones Negative Urine Blood Negative Urine Nitrite Negative Urine Bilirubin Negative Urine Urobilinogen 2.0 Ur Leukocyte Esterase Negative 06/22/18 17:54 RBC 5.36 MCV 86.5 MCHC 33.9 RDW 15.0 MPV 8.9 Neutrophils % 65.7 Lymphocytes % 24.7 D Monocytes % 6.9 Eosinophils % 2.1 Basophils % 0.6 Progress Note - Progress Note Progress Note: Received signout from MARY Millard. Briefly this is a 37-year-old male with history of bipolar disorder, hypertension, hyperlipidemia, obesity and diabetes [facility] emergency department for left flank pain starting yesterday. Patient recently diagnosed with apendocolith without evidence of appendicitis. Patient reports increasing intensity and dull left flank. Upon arrival vital signs notable for heart rate of 120. Initial laboratory testing is unremarkable. Patient is receive 1 liter of fluids, 1 g of Tylenol IV , Zofran 4 mg. Patient is currently pending renal ultrasound at this time. Medical Decision Making - Medical Decision Making 06/22/18 20:58 Ultrasound as read by Dr. Hitchcock: Negative exam. No definite sonographic abnormalities identified within either kidney. Diffuse hepatic steatosis 06/22/18 21:52 Patient with continued pain after receiving IV Tylenol. Morphine 4 mg IV. Reassess 06/23/18 01:48 Patient with continued pain after receiving Tylenol, morphine 4 mg 2 and Toradol 30 mg IV. I will contact hospitalist for admission for pain management. 06/23/18 02:[address] Terrazas recommends discharge at this time to follow-up with Dr. Latif tomorrow. I will discharge the patient home with prescription for OxyContin until he can follow up with his primary doctor. *DC/Admit/Observation/Transfer Diagnosis at time of Disposition: Flank pain - Discharge Dispostion Disposition: HOME Condition at time of disposition: Fair Decision to Admit order: No - Prescriptions Prescriptions: Oxycodone HCl 10 mg PO QID PRN #10 tablet MDD 4 PRN Reason: Severe Pain - Referrals Referrals: Sissy Latif MD [Primary Care Provider] - - Patient Instructions Additional Instructions: Laboratory testing and renal ultrasounds were normal today. Take Tylenol or Motrin as directed by manufacturers instructions for pain. Take OxyContin 10 mg every 6 hours as needed for severe pain. Call Dr. Latif office in the morning for reevaluation. Return to emergency department for any concerns - Post Discharge Activity
[2018-06-22] MEDS ORDERED: ACETAMINOPHEN INJECTION 100 ML IVPB ONE (19:31)
[2018-06-22] MEDS ORDERED: ONDANSETRON 4 MG/2 ML VIAL ONE (19:31)
[2018-06-22] MEDS ORDERED: morphine CARPU-JECT 4 MG/1 ML DISP.SYRIN IVPUSH ONE (21:49)
[2018-06-22] MEDS ORDERED: morphine SULFATE 4 MG/ML VIAL ONE (22:36)
[2018-06-22] MEDS ORDERED: KETOROLAC TROMETHAMINE 30 MG/1 ML VIAL IVPUSH ONE (23:28)
[2018-06-22] MEDS ORDERED: KETOROLAC TROMETHAMINE 30 MG/1 ML VIAL ONE (23:40)
[2018-06-23] MEDS ORDERED: morphine CARPU-JECT 4 MG/1 ML DISP.SYRIN IVPUSH ONE (00:37)
[2018-06-23] MEDS ORDERED: ZOLPIDEM TARTRATE 5 MG TABLET PO ONE (01:48)
[2018-06-23] MEDS ORDERED: clonazePAM 0.5 MG TABLET PO ONE (01:48)
[2018-06-23] MEDS ORDERED: QUEtiapine FUMARATE 400 MG TABLET PO ONE (01:48)
[2018-06-23] MEDS ORDERED: QUEtiapine FUMARATE 300 MG TABLET PO ONE (01:49)
[2018-06-23] MEDS ORDERED: QUEtiapine FUMARATE 100 MG TABLET (FP) PO ONE (02:30)
[2018-06-23] MEDS ORDERED: morphine SULFATE 4 MG/ML VIAL ONE (02:33)
[2018-06-23 05:02] VITALS: BP 139/78; PULSE 83; TEMP 7
--- NOTE | 2018-06-23 16:57 | EKG ---
Test Reason : Blood Pressure : / mmHG Vent. Rate : 108 BPM Atrial Rate : 108 BPM P-R Int : 158 ms QRS Dur : 070 ms QT Int : 344 ms P-R-T Axes : 055 067 076 degrees QTc Int : 460 ms SINUS TACHYCARDIA OTHERWISE NORMAL ECG WHEN COMPARED WITH ECG OF 15-JUN-2018 14:49, NO SIGNIFICANT CHANGE WAS FOUND Confirmed by MATT SOTO MD ([id number]) on 06/23/2018 4:57:29 PM Referred By: Confirmed By:MATT SOTO MD
== END 2018-06-23 05:04 | disposition home or self-care (01) ==
LOC: JER 16:31
PROC: 3E0337Z Introduction of Electrolytic and Water Balance Substance into Peripheral Vein, Percutaneous Approach (ICD-10-PCS; principal; 2018-06-22)
PROC: 3E033GC Introduction of Other Therapeutic Substance into Peripheral Vein, Percutaneous Approach (ICD-10-PCS; 2018-06-22)
PROC: 3E033NZ Introduction of Analgesics, Hypnotics, Sedatives into Peripheral Vein, Percutaneous Approach (ICD-10-PCS; 2018-06-22)
PROC: 3E0333Z Introduction of Anti-inflammatory into Peripheral Vein, Percutaneous Approach (ICD-10-PCS; 2018-06-22)
PROC: 3E033NZ Introduction of Analgesics, Hypnotics, Sedatives into Peripheral Vein, Percutaneous Approach (ICD-10-PCS; 2018-06-22)
DX: R10.32 Left lower quadrant pain (principal); I10 Essential (primary) hypertension; E11.9 Type 2 diabetes mellitus without complications; E78.00 Pure hypercholesterolemia, unspecified; F31.9 Bipolar disorder, unspecified; E78.5 Hyperlipidemia, unspecified; E66.9 Obesity, unspecified
CPT/HCPCS: 36415; 76775-TC; 80053; 81003; 85025; 85610; 87086; 93005; 93010; 99283-25; J0131; J7030

== ENCOUNTER 2019-04-03 08:00 | Inpatient (IN) | payer OTHER ==
[2019-03-27 14:53] VITALS: BMI 52.9
[~2019-04-03 08:00] MED LIST: VENTOLIN IH PRN
[2019-04-03] MEDS ORDERED: ROPIVACAINE HCL 0.5% 30ML VIAL ONE (09:50)
[2019-04-03] MEDS ORDERED: MIDAZOLAM HCL 2 MG/2 ML SINGLE DOSE VIAL ONE ×2 (09:50→12:09)
--- NOTE | 2019-04-03 10:01 | HP ---
Admitting History and Physical - Admission Chief Complaint: Morbid obesity History Source: Patient Limitations to Obtaining History: No Limitations - Past Medical History Cardiovascular: Yes: HTN, Hyperlipdemia Pulmonary: Yes: Asthma, Sleep Apnea Gastrointestinal: Yes: Other (colon polyps 5 years ago, " blood clots" in 2019 ) Hepatobiliary: Yes: Other (fatty liver) Renal/: Yes: Renal Inusuff Psych: Yes: Bipolar Endocrine: Yes: Diabetes Mellitus - Past Surgical History Past Surgical History: Yes: Appendectomy, Colonoscopy, Upper Endoscopy - Smoking History Smoking history: Current some day smoker Have you smoked in the past 12 months: Yes Aproximately how many cigarettes per day: 20 - Alcohol/Substance Use Hx Alcohol Use: Yes (rare wine cooler) History of Substance Use: reports: Marijuana (semiregularly) - Social History ADL: Independent Occupation: unemployed History of Recent Travel: No Home Medications - Allergies Allergies/Adverse Reactions: Allergies Allergy/AdvReac Type Severity Reaction Status Date / Time loratadine [From Claritin] Allergy Severe Hives Verified 03/27/19 14:38 - Home Medications Home Medications: Ambulatory Orders Quetiapine Fumarate [Seroquel] 300 mg PO BID 06/15/18 Aspirin 81 mg PO DAILY 06/17/18 Melatonin/Pyridoxine HCl (B6) [Melatonin 5 mg Tablet] 5 mg PO HS 06/17/18 SYMBICORT 160/4.5mcg - 160 mcg IH BID 06/17/18 Ventolin HFA Inhaler - 2 puff IH ASDIR PRN 06/17/18 clonazePAM [Klonopin -] 1 mg PO BID 06/17/18 Losartan Potassium [Cozaar -] 50 mg PO DAILY #30 tablet MDD 1 06/21/18 Zolpidem Tartrate [Ambien] 10 mg PO HS 06/22/18 Oxycodone HCl 10 mg PO QID PRN #10 tablet MDD 4 06/23/18 Amlodipine Besylate 10 mg PO DAILY 03/27/19 Haloperidol Decanoate [Haldol Decanoate 100] 100 mg IM MONTHLY 03/27/19 Docusate Sodium [Colace -] 100 mg PO TID #90 capsule 04/03/19 Famotidine [Pepcid] 20 mg PO BID #60 tablet 04/03/19 Ondansetron [Zofran -] 8 mg PO TID #30 tablet 04/03/19 Family Medical History Family History: Denies Review of Systems - Review of Systems Constitutional: denies: Chills, Fever HENT: reports: No Symptoms Neck: reports: No Symptoms Cardiovascular: reports: No Symptoms Respiratory: reports: No Symptoms Gastrointestinal: reports: No Symptoms Neurological: reports: No Symptoms Pain Intensity: 0 Physical Examination Constitutional: Yes: Calm HENT: Yes: WNL Neck: Yes: WNL Cardiovascular: Yes: WNL Respiratory: Yes: Regular Gastrointestinal: Yes: Soft, Abdomen, Obese Neurological: Yes: Alert, Oriented Problem List - Problems (1) Morbid obesity due to excess calories Code(s): E66.01 - MORBID (SEVERE) OBESITY DUE TO EXCESS CALORIES (2) BMI 50.0-59.9, adult Code(s): Z68.43 - BODY MASS INDEX (BMI) 50.0-59.9, ADULT (3) Hypertension Code(s): I10 - ESSENTIAL (PRIMARY) HYPERTENSION Qualifiers: Hypertension type: unspecified Qualified Code(s): I10 - Essential (primary ) hypertension Assessment/Plan Laparoscopic possible open vertical sleeve gastrectomy possible liver biopsy, upper endoscopy
[2019-04-03] MEDS ORDERED: BUPIVACAINE HCL 0.25% 125 MG/50 ML VIAL ONE (10:22)
[2019-04-03] MEDS ORDERED: ROCURONIUM BROMIDE 50 MG/5 ML SYRINGE ONE (11:08)
[2019-04-03] MEDS ORDERED: SUCCINYLCHOLINE CHLORIDE 200 MG/10 ML SYRINGE ONE (11:08)
[2019-04-03] MEDS ORDERED: LIDOCAINE HCL/PF 2% SDV 5ML VIAL ONE (11:08)
[2019-04-03] MEDS ORDERED: PROPOFOL 20 ML ONE ×2 (11:08→13:35)
[2019-04-03] MEDS ORDERED: ALBUTEROL SO4 8 GM HFA INHALER IH PRN (11:37)
[2019-04-03] MEDS ORDERED: ceFAZolin SODIUM 1 GM VIAL ONE (12:56)
[2019-04-03] MEDS ORDERED: DEXAMETHASONE SOD PHOSPHATE 4 MG/1 ML VIAL ONE (13:16)
[2019-04-03] MEDS ORDERED: ONDANSETRON 4 MG/2 ML VIAL ONE (13:16)
[2019-04-03] MEDS ORDERED: GLYCOPYRROLATE 0.2 MG/1 ML VIAL ONE (13:40)
[2019-04-03] MEDS ORDERED: NEOSTIGMINE METHYLSULFATE 0.5 MG/ML - 10 ML MDV ONE (13:40)
--- NOTE | 2019-04-03 14:12 | OPR ---
Operative Note Operative Date: 04/03/19 Pre-Operative Diagnosis: Morbid obesity; BMI 52.9 Operation: 1. Diagnostic laparoscopy. 2. Laparoscopic vertical sleeve gastrectomy. 3. Laparoscopic wedge liver biopsy. 4. Laparoscopic oversewing of gastric staple line Post-Operative Diagnosis: Same as Pre-op (as well as hepatomegaly and oozing from gastric staple line) Surgeon: Adam Schmitt Assembly Inspector Helper: Eron Doss Anesthesia: General Specimens Removed: Greater curvature of stomach. Liver biopsy. Estimated Blood Loss (mls): 30 Drains & Tubes with Location: [address] Operative Report Dictated: Yes
[2019-04-03] MEDS ORDERED: SODIUM CHLORIDE 1,000 ML IV SCH (14:15)
[2019-04-03] MEDS ORDERED: FAMOTIDINE 20 MG/50 ML IVPB 20 MG/50 ML MG IVPB ONE (14:29)
[2019-04-03 14:39] LABS: ALBUMIN 3.6 g/dl (3.4-5.0); BILIRUBIN,TOTAL 0.5 mg/dl (0.2-1); CALCIUM 9.3 mg/dl (8.5-10); CREATININE 1.2 mg/dl (0.55-1.3); POTASSIUM 4.2 mmol/L (3.5-5.1); TOT PROT 6.7 g/dl (6.4-8.2)
[2019-04-03] MEDS: ACETAMINOPHEN 1000 MG/100 ML VIAL (NON FORMULARY) IVPB SCH ×2 (14:40→20:29)
[2019-04-03] MEDS: METOCLOPRAMIDE HCL INJECTION 10 MG/2 ML VIAL IVPUSH SCH ×2 (14:45→20:29)
[2019-04-03] MEDS: ONDANSETRON 4 MG/2 ML VIAL IVPUSH SCH ×3 (14:47→22:11)
[2019-04-03] MEDS ORDERED: LACTATED RINGERS SOLUTION 1,000 ML IV SCH (15:15)
[2019-04-03 15:35] LABS: HEMATOCRIT 45.8 % (35.4-49); HEMOGLOBIN 15.1 GM/dl (11.7-16.9); MCH 29.6 pg (25.7-33.7); MEAN CELL VOLUME 89.6 fl (80-96); MEAN PLT VOLUME 8.3 fl (7.5-11.1); PLATELET COUNT 206 K/MM3 (134-434); RBC 5.11 M/mm3 (4.00-5.60); RDW 13.2 % (11.9-15.9); WHITE BLOOD COUNT 9.6 K/mm3 (4.0-10.8)
[2019-04-03 16:10] LABS: ALBUMIN 3.7 g/dl (3.4-5.0); BILIRUBIN,TOTAL 0.4 mg/dl (0.2-1); CREATININE 1.3 mg/dl (0.55-1.3); POTASSIUM 4.3 mmol/L (3.5-5.1); TOT PROT 6.9 g/dl (6.4-8.2)
--- NOTE | 2019-04-03 16:33 | SPEC ---
DATE OF OPERATION: 04/03/2019 PLACE OF SERVICE: [facility], [address] [place] [address] SURGEON: Adam Schmitt MD [employer] ATTENDANT: Eron Doss MD PREOPERATIVE DIAGNOSIS: Morbid obesity. POSTOPERATIVE DIAGNOSIS: Morbid obesity, hepatomegaly, and oozing for gastric staple line. SPECIMEN: Greater curvature of the stomach, liver biopsy. PROCEDURE: Diagnostic laparoscopy, laparoscopic vertical sleeve gastrectomy, laparoscopic wedge liver biopsy, laparoscopic over sewing of gastric staple line. BOUGIE SIZE: 36-Colombian. ANESTHESIA: GET. ESTIMATED BLOOD LOSS: 30 mL. DRAIN: None. REASON FOR PROCEDURE: This is a 38-year-old man who presents for weight loss options. After describing different options, he decided to proceed with laparoscopic, possible open, vertical sleeve gastrectomy, possible liver biopsy, upper endoscopy. The patient was seen by the respective subspecialties and cleared for surgery. The risks and benefits of the procedure were explained. These included bleeding, infection, hernia, KS, DVT, PE, injury to surrounding structures including the liver, colon, bowel, spleen, esophagus, vessel injury, nerve injury, weight regain, gastric leak, staple line leak, sleeve leak, obstruction, vitamin deficiency, hair loss and as some of the possible complications. The patient understood and signed informed consent. DESCRIPTION OF PROCEDURE: The patient was placed supine on the operating room table. The patient underwent general endotracheal intubation. The arms were brought out at 90 degrees and secured. A footboard was placed and the legs were secured laterally with padding. The abdomen was prepped and draped in the usual sterile fashion. A timeout was performed. An incision was made in the left upper quadrant and a Veress needle inserted. Pneumoperitoneum was established. Subsequently, the Veress needle was removed and a 5-mm trocar was placed under direct visualization with the laparoscope. The laparoscopic camera was then inserted and inspection of the abdominal cavity was performed. An incision was then made in the supraumbilical area and a 15-mm trocar was placed under direct visualization. A 5-mm trocar was then placed in the right upper quadrant and a 5-mm trocar was placed below the left subcostal margin. A stab wound was made in the subxiphoid area and a Verónica clamp inserted and removed to dilate the tract. A Nancie liver retractor was inserted. The post was secured at the bedside by the nursing staff. The patient was placed in steep reverse Trendelenburg position and the Nancie liver retractor was used to secure the liver towards the anterior abdominal wall. The pylorus was identified and 6 cm proximal to it, the lesser sac was entered using the LigaSure device. All lateral attachments to the greater curvature of the stomach, including the short gastric vessels, were ligated using the LigaSure device toward the gastrosplenic and gastrophrenic ligaments. Once this was done in its entirety, it was confirmed that all tubes within the nasal or oropharyngeal cavity, including a temperature probe were removed by Anesthesia. The bougie was then inserted by Anesthesia. Transection of the stomach was then begun staying adjacent to the bougie but away from the angularis. Transection of the stomach was performed near the portion of the stomach where the lesser sac was entered. Two laparoscopic Endo-COLBY black brant were used at this location. Laparoscopic Endo COLBY purple staple loads were then used for the remainder of the transection until the greater curvature of the stomach was fully transected. This was done staying close to the bougie. Care was taken to stay away from the angle of His cephalad. The staple line was then inspected. Hemostasis was identified. A leak test was then performed. It was clamped distally to the staple line. Irrigation solution was placed in the left upper quadrant and air was insufflated by Anesthesia into the sleeve. No leaks were identified. No obstruction was identified. This was done through the entirety of the staple line. The stomach was suctioned and the bougie removed fully intact under direct visualization. At this point, the irrigation solution was suctioned and again, hemostasis was noted. A wedge liver biopsy was then performed. The left lobe of the liver was identified. A portion of the edge of the left lobe of the liver was grasped. Using electrocautery, a wedge of the left liver was excised. The specimen was removed and sent off the field. Hemostasis of the wedge liver biopsy site was attained and noted using electrocautery. The 15-mm supraumbilical trocar was then removed and the greater curvature specimen removed from the site using a sponge stick stone. A Sebastián-Trish device was then used to close the fascia with a 0 Vicryl suture at the site. Again, hemostasis was noted. The Nancie liver retractor was then removed under direct visualization. Pneumoperitoneum was desufflated. Hemostasis was noted at all incision sites and Marcaine was injected at all incision sites. A 3-0 Vicryl suture was used to close the deep subcutaneous tissue at the 15-mm incision site. All incision sites were closed using 4-0 Biosyn. In addition, because of oozing at the staple line, the staple line needed to be over sewn using the Endo Stitch device in 2 different locations. Once this was performed, hemostasis was noted. Sterile dressings were applied. The patient tolerated the procedure well and was transferred to the recovery room in stable condition. Shannon [id number]
[2019-04-03] MEDS: HYDROmorphone HCL CARPU-JECT 1 MG/1 ML DISP.SYRIN IVPB PRN ×2 (16:49→23:44)
[2019-04-03] MEDS: ENOXAPARIN NA (PORCINE) 40 MG/0.4 ML DISP.SYRIN SQ SCH (21:25)
[2019-04-03] MEDS: FAMOTIDINE 20 MG/50 ML IVPB 20 MG/50 ML MG IVPB SCH (21:25)
[2019-04-03] MEDS: BUDESONIDE/FORMETEROL FUMARATE 160/4.5 mcg INHALER IH SCH (22:11)
[2019-04-04] MEDS: METOCLOPRAMIDE HCL INJECTION 10 MG/2 ML VIAL IVPUSH SCH ×3 (03:15→09:31)
[2019-04-04] MEDS: ONDANSETRON 4 MG/2 ML VIAL IVPUSH SCH ×2 (03:15→06:53)
[2019-04-04] MEDS: ACETAMINOPHEN 1000 MG/100 ML VIAL (NON FORMULARY) IVPB SCH ×2 (03:16→09:29)
[2019-04-04] MEDS: HYDROmorphone HCL CARPU-JECT 1 MG/1 ML DISP.SYRIN IVPB PRN (04:08)
--- NOTE | 2019-04-04 07:48 | PN ---
Progress Note (short form) - Note Progress Note: BARIATRIC SURGERY POD #1 s/p Laparoscopic vertical sleeve gastrectomy. Wedge liver biopsy. No acute events per RN notes. Alert. C/o mild incisional tenderness. Adequate pain control w/ medications ordered. Using his incentive spirometer as directed. OOB and ambulating unassisted. Voiding spontaneously. Denies n/v/f/c, CP, palpitations, SOB or REYES. Last Vital Signs Temp Pulse Resp BP Pulse Ox 98.5 F 91 H 21 H 138/68 91 L 04/04/19 04:00 04/04/19 04:00 04/04/19 07:31 04/04/19 04:00 04/04/19 07:31 Gen: alert. nad ABD: obese habitus. All surgical ports c/d/i. LE: SCDs bilat <Jonel Reyna - Last Filed: 04/04/19 07:43> - Note Progress Note: POD 1 No acute events Vital Signs Period Temp Pulse Resp BP Sys/Platt Pulse Ox Last 24 Hr 97 F-99.1 F 91-105 14-21 138-159/68-100 91-100 Abd soft CBC, BMP 04/04/19 12:34 04/04/19 07:28 UGI results pending If no leak/obstruction, will start clears and plan discharge <Adam Schmitt - Last Filed: 04/04/19 12:58> Problem List - Problems (1) BMI 50.0-59.9, adult Assessment/Plan: POD #1 s/p Laparoscopic vertical sleeve gastrectomy. Wedge liver biopsy. Going for UGI this morning, if negative will begin Bariatric Stage 1 Diet. Cont OOB and ambulate Incentive spirometer Nicotine Patch Pain management Tight glycemic control DVT PPX If tolerates diet will DC home later today Code(s): Z68.43 - BODY MASS INDEX (BMI) 50.0-59.9, ADULT (2) Hepatomegaly Code(s): R16.0 - HEPATOMEGALY, NOT ELSEWHERE CLASSIFIED (3) Hypertension Code(s): I10 - ESSENTIAL (PRIMARY) HYPERTENSION Qualifiers: Hypertension type: unspecified Qualified Code(s): I10 - Essential (primary ) hypertension (4) Morbid obesity due to excess calories Code(s): E66.01 - MORBID (SEVERE) OBESITY DUE TO EXCESS CALORIES (5) Diabetes mellitus Code(s): E11.9 - TYPE 2 DIABETES MELLITUS WITHOUT COMPLICATIONS <Jonel Reyna - Last Filed: 04/04/19 07:43> - Problems (1) Morbid obesity due to excess calories Code(s): E66.01 - MORBID (SEVERE) OBESITY DUE TO EXCESS CALORIES (2) BMI 50.0-59.9, adult Code(s): Z68.43 - BODY MASS INDEX (BMI) 50.0-59.9, ADULT (3) Hypertension Code(s): I10 - ESSENTIAL (PRIMARY) HYPERTENSION Qualifiers: Hypertension type: unspecified Qualified Code(s): I10 - Essential (primary ) hypertension <Adam Schmitt - Last Filed: 04/04/19 12:58>
[2019-04-04 08:15] LABS: HEMATOCRIT 43.7 % (35.4-49); HEMOGLOBIN 14.6 GM/dl (11.7-16.9); MCH 29.8 pg (25.7-33.7); MCHC 33.5 g/dl (32.0-35.9); MEAN CELL VOLUME 88.8 fl (80-96); MEAN PLT VOLUME 8.8 fl (7.5-11.1); PLATELET COUNT 238 K/MM3 (134-434); RBC 4.91 M/mm3 (4.00-5.60); RDW 12.8 % (11.9-15.9); WHITE BLOOD COUNT 12.8 K/mm3 (4.0-10.8)
[2019-04-04 09:02] LABS: ALBUMIN 3.9 g/dl (3.4-5.0); BILIRUBIN,TOTAL 0.5 mg/dl (0.2-1); CALCIUM 8.7 mg/dl (8.5-10); CREATININE 1.2 mg/dl (0.55-1.3); POTASSIUM 4.1 mmol/L (3.5-5.1); TOT PROT 7.2 g/dl (6.4-8.2)
[2019-04-04] MEDS ORDERED: PT OWN MED DRAWER 7, Y5N ONE (09:02)
[2019-04-04] MEDS: BUDESONIDE/FORMETEROL FUMARATE 160/4.5 mcg INHALER IH SCH (09:30)
[2019-04-04] MEDS: FAMOTIDINE 20 MG/50 ML IVPB 20 MG/50 ML MG IVPB SCH (09:30)
[2019-04-04] MEDS: ENOXAPARIN NA (PORCINE) 40 MG/0.4 ML DISP.SYRIN SQ SCH (09:31)
[2019-04-04] MEDS ORDERED: NICOTINE 21 MG/24 HOURS TOPICAL PATCH TD SCH (10:00)
[2019-04-04 12:37] LABS: BASO % 1.2 % (0-2.0); EOS % 2.2 % (0-4.5); HEMATOCRIT 44.7 % (35.4-49); HEMOGLOBIN 14.9 GM/dl (11.7-16.9); LYMPH % 14.5 % (8-40); MCH 29.5 pg (25.7-33.7); MCHC 33.3 g/dl (32.0-35.9); MEAN CELL VOLUME 88.7 fl (80-96); MEAN PLT VOLUME 8.2 fl (7.5-11.1); MONO % 4.7 % (3.8-10.2); NEUT % 77.4 % (42.8-82.8); PLATELET COUNT 231 K/MM3 (134-434); RBC 5.04 M/mm3 (4.00-5.60); RDW 13.1 % (11.9-15.9); WHITE BLOOD COUNT 13.3 K/mm3 (4.0-10.8)
[2019-04-04 12:49] VITALS: BP 140/72; PULSE 94; TEMP 99.1
[2019-04-04] MEDS ORDERED: oxyCODONE HCL 5 MG TABLET PO PRN (13:46)
[2019-04-04] MEDS ORDERED: SODIUM CHLORIDE 1,000 ML IV SCH (14:00)
--- NOTE | 2019-04-06 12:11 | PATH ---
Surgical Pathology Report Patient Name: EFE MAHCUCA Med. Rec. #: [id number] /Age/Gender: 1980 (Age: 38) / M Account: [id number] Location: [facility] Taken: 04/03/2019 Received: 04/03/2019 Reported: 04/06/2019 Physicians: Adam Schmitt M.D. Specimen(s) Received A: GREATER CURVATURE STOMACH B: LIVER BIOPSY Clinical History Morbid obesity Final Diagnosis A. GREATER CURVATURE OF STOMACH, LAPAROSCOPIC GASTRIC SLEEVE EXCISION: PORTION OF STOMACH SHOWING MILD CHRONIC MUCOSAL INFLAMMATION. IMMUNOSTAIN IS NEGATIVE FOR H. PYLORI ORGANISMS. B. LIVER, BIOPSY: LIVER SHOWING SEVERE STEATOSIS (~70%) WITH PATCHY MILD STEATOHEPATITIS (GRADE 1). (SEE COMMENT) TRICHROME STAIN SHOWS PATCHY MILD PERISINUSOIDAL FIBROSIS (STAGE 1). IRON STAIN SHOWS NO INCREASE IN IRON DEPOSITS. Comment: The Non-Alcoholic Steatosis (CHRISTINE) score is 5/8 (steatosis: 3/3; lobular inflammation: 1/3; hepatic balloonin/3). The CHRISTINE fibrosis stage is 1(a)/4. Electronically Signed Susana Carpio M.D. Gross Description A. Received in formalin, labeled "greater curvature of the stomach," is a 115 gram, 22.0 x 3.4 x 2.6 cm. portion of stomach with a stapled margin of resection. The serosa is johnson-warner with minimal attached fat. The mucosa is johnson-pink with normal folds. No mucosal masses are identified. Measurement Operator sections are submitted in one cassette. B. Received in formalin labeled "liver biopsy," is a 2.5 x 1.4 x 0.8 cm johnson portion of soft tissue, consistent with a liver biopsy. Measurement Operator sections are submitted in one cassette. DL/04/04/201904/04/2019
== END 2019-04-04 13:39 | disposition home or self-care (01) | DRG 403 ==
LOC: FM/S 09:38
PROVIDERS: ADMIT Surgery; ATTEND Surgery
PROC: 0DB64Z3 Excision of Stomach, Percutaneous Endoscopic Approach, Vertical (ICD-10-PCS; principal; 2019-04-03 13:07)
PROC: 0FB24ZX Excision of Left Lobe Liver, Percutaneous Endoscopic Approach, Diagnostic (ICD-10-PCS; 2019-04-03 13:07)
DX: E66.01 Morbid (severe) obesity due to excess calories (principal); Z68.43 Body mass index [BMI] 50.0-59.9, adult; R16.0 Hepatomegaly, not elsewhere classified; I10 Essential (primary) hypertension; E11.9 Type 2 diabetes mellitus without complications; E78.5 Hyperlipidemia, unspecified; J45.909 Unspecified asthma, uncomplicated; G47.30 Sleep apnea, unspecified; F31.9 Bipolar disorder, unspecified; K76.0 Fatty (change of) liver, not elsewhere classified
CPT/HCPCS: 36415; 74241-TC-FY; 80053; 85025; 85027; 94660; 94760; J0131; Q9967